=== PATIENT | female | born 1940 | race Caucasian/White ===

== ENCOUNTER 2016-12-03 09:30 | Outpatient (RCR) | payer MEDICARE, OTHER ==
[~2016-12-03 09:30] MED LIST: ALLOPURINOL300 MG PO; BISOPROLOL FUMA10 MG PO; CALCIUM CITRATE1 TA6 PO; HAWTHORN BERRIE1 CAP PO; HYZAAR 25 MG-101 TAB PO; OMEGA-31000 MG PO; POTASSIUM20 MEQ PO; TEKTURNA150 MG PO; VITAMIN D1000 IU PO; ZINC50 M1 PO
== END 2016-12-06 08:47 | disposition still patient (30) ==
LOC: MKS.ESL.PT 09:30
DX: M46.87 Other specified inflammatory spondylopathies, lumbosacral region (principal); M54.5 Low back pain
CPT/HCPCS: G8978-GP; G8979-GP; G8980-GP

== ENCOUNTER → 2017-01-04 | Outpatient (CLI) | payer MEDICARE, OTHER | LOC: SUN.DIA 08:45 | DX: E11.9 Type 2 diabetes mellitus without complications (principal); E66.9 Obesity, unspecified; Z68.32 Body mass index [BMI] 32.0-32.9, adult; Z71.3 Dietary counseling and surveillance; I10 Essential (primary) hypertension ==

== ENCOUNTER → 2017-03-07 | Outpatient (CLI) | payer MEDICARE, OTHER | LOC: MC.RAD 07:00 | DX: Z12.31 Encounter for screening mammogram for malignant neoplasm of breast (principal); D24.2 Benign neoplasm of left breast; Z85.3 Personal history of malignant neoplasm of breast; Z80.3 Family history of malignant neoplasm of breast ==

== ENCOUNTER → 2017-07-19 | Outpatient (CLI) | payer MEDICARE, OTHER | LOC: SUN.DIA 07-05 09:51 | DX: E11.9 Type 2 diabetes mellitus without complications (principal); I10 Essential (primary) hypertension; E66.9 Obesity, unspecified; Z68.35 Body mass index [BMI] 35.0-35.9, adult; Z71.3 Dietary counseling and surveillance | CPT/HCPCS: G0108 ==

== ENCOUNTER → 2017-08-26 | Outpatient (CLI) | payer MEDICARE, OTHER | LOC: COL.RAD 10:58 | DX: M48.06 Spinal stenosis, lumbar region (principal); M51.36 Other intervertebral disc degeneration, lumbar region; M46.86 Other specified inflammatory spondylopathies, lumbar region ==

== ENCOUNTER 2018-01-06 13:15 | Outpatient (RCR) | payer MEDICARE, OTHER | END 2018-02-16 | disposition home or self-care (01) | LOC: MKS.ESL.PT | DX: M75.02 Adhesive capsulitis of left shoulder (principal) | CPT/HCPCS: G8984-GP; G8985-GP; G8986-GP ==

== ENCOUNTER → 2018-01-24 | Outpatient (CLI) | payer MEDICARE, OTHER | LOC: SUN.DIA 08:43 | DX: E11.9 Type 2 diabetes mellitus without complications (principal); I10 Essential (primary) hypertension; E66.9 Obesity, unspecified; Z68.34 Body mass index [BMI] 34.0-34.9, adult; Z71.3 Dietary counseling and surveillance | CPT/HCPCS: G0108 ==

== ENCOUNTER 2018-03-14 20:47 | Observation (INO) | payer MEDICARE, OTHER ==
[~2018-03-14] VITALS: Ht 165.1 cm; Wt 98.3 kg
[2018-03-14 21:08] LABS: BASO % 0.5 % (0.0-2.0); EOS # 0.2 (0.0-0.7); EOS % 1.8 % (0-4.0); GRAN # 3.9 (1.4-6.5); GRAN % 47.3 % (42.2-75.2); HEMOGLOBIN 13.8 g/dl (12.5-16.0); LYMPH # 3.2 (1.2-3.4); LYMPH % 38.4 % (20.0-51.0); MEAN CELL VOLUME 95 fl (80.0-100.0); MEAN CORPUSCULAR HEMOGLOBIN 34 pg (27.0-31.0); MEAN CORPUSCULAR HGB CONC 35 g/dl (33.0-37.0); MEAN PLATELET VOLUME 10.3 fl (7.4-10.4); MONO % 11.8 % (1.7-9.3); PLATELET COUNT 170 K/mm3 (130-400); RED BLOOD COUNT 4.12 M/mm3 (4.10-5.30); REDCELL DISTRIBUTION WIDTH-CV 11.7 % (11.5-14.5)
[2018-03-14 21:12] LABS: PROTHROMBIN TIME 11.6 SECONDS (9.7-12.8)
[2018-03-14 21:44] LABS: ALANINE AMINOTRANSFERASE 35 U/L (9-52); ALBUMIN 4.3 gm/dL (3.5-5.0); ALKALINE PHOSPHATASE 77 U/L (50-136); ANION GAP 14 mmol/L (7-16); AST,SGOT 32 U/L (15-37); BILIRUBIN,TOTAL 0.7 mg/dL (0.0-1.0); BLOOD UREA NITROGEN 14 mg/dL (7-17); C-REACTIVE PROTEIN < 0.5 mg/dL (0.0-0.9); CALCIUM 9.9 mg/dL (8.4-10.2); CARBON DIOXIDE 27 mmol/L (22-30); CHLORIDE 98 mmol/L (98-107); CREATININE, serum 0.73 mg/dL (0.52-1.25); GLUCOSE 123 mg/dL (74-106); POTASSIUM 4.3 mmol/L (3.4-5.0); SODIUM 139 mmol/L (137-145); TOTAL PROTEIN 7.7 gm/dL (6.4-8.2)
[2018-03-14] MEDS ORDERED: ZYLOPRIM 100MG100 MG PO (21:46)
[2018-03-14] MEDS ORDERED: ARIMIDEX1 MG PO (21:47)
[2018-03-14] MEDS ORDERED: DIGESTIVE PROB1 EACH PO (21:50)
[2018-03-14] MEDS ORDERED: ZEBETA 5MG5 MG PO (21:50)
[2018-03-14] MEDS ORDERED: SUPER CALCIUM W1 TA2 PO (21:55)
[2018-03-14] MEDS ORDERED: COZAAR100 MG PO (21:56)
[2018-03-14] MEDS ORDERED: CALCIUM CITRAT200 M2 (21:56)
[2018-03-14] MEDS ORDERED: ALDACTONE 25MG25 M1 PO (21:58)
[2018-03-14] MEDS ORDERED: TYLENOL 8 HR PO (22:39)
[2018-03-14 23:33] VITALS: BP 233/66; PULSE 58; TEMP 98.4
[2018-03-15 00:41] VITALS: BP 168/42
[2018-03-15 04:02] VITALS: BP 148/59; PULSE 58; TEMP 97.5
[2018-03-15 07:22] LABS: BASO % 0.5 % (0.0-2.0); EOS # 0.1 (0.0-0.7); EOS % 1.9 % (0-4.0); GRAN # 3.5 (1.4-6.5); GRAN % 55.8 % (42.2-75.2); HEMATOCRIT 37.4 % (37.0-47.0); HEMOGLOBIN 13.1 g/dl (12.5-16.0); LYMPH % 32.1 % (20.0-51.0); MEAN CELL VOLUME 96 fl (80.0-100.0); MEAN CORPUSCULAR HEMOGLOBIN 34 pg (27.0-31.0); MEAN CORPUSCULAR HGB CONC 35 g/dl (33.0-37.0); MEAN PLATELET VOLUME 10.4 fl (7.4-10.4); MONO # 0.6 (0.1-0.6); MONO % 9.4 % (1.7-9.3); PLATELET COUNT 162 K/mm3 (130-400); RED BLOOD COUNT 3.89 M/mm3 (4.10-5.30); REDCELL DISTRIBUTION WIDTH-CV 11.8 % (11.5-14.5)
[2018-03-15 07:29] LABS: CALCIUM 9.4 mg/dL (8.4-10.2); CHOLESTEROL RISK RATIO 3.5; CREATININE, serum 0.66 mg/dL (0.52-1.25); POTASSIUM 3.8 mmol/L (3.4-5.0)
[2018-03-15 09:00] VITALS: BP 148/80
[2018-03-15 09:31] VITALS: PULSE 49; TEMP 98.2
[2018-03-15 13:00] VITALS: BP 150/62; BP 151/62; PULSE 60; TEMP 98
[2018-03-15 16:15] VITALS: BP 145/60; PULSE 47; TEMP 98.3
[2018-03-15] MEDS ORDERED: PLAVIX 75MG TAB75 MG PO (16:55)
== END 2018-03-15 17:41 | disposition home or self-care (01) ==
LOC: COL.ER 20:47 → MEDICAL 21:52
PROVIDERS: Family Medicine; Nurse Practitioner
DX: G45.9 Transient cerebral ischemic attack, unspecified (principal); I10 Essential (primary) hypertension; I08.1 Rheumatic disorders of both mitral and tricuspid valves; Z90.710 Acquired absence of both cervix and uterus; Z88.2 Allergy status to sulfonamides; Z88.8 Allergy status to other drugs, medicaments and biological substances; Z88.1 Allergy status to other antibiotic agents; Z85.3 Personal history of malignant neoplasm of breast; Z85.828 Personal history of other malignant neoplasm of skin; Z83.3 Family history of diabetes mellitus; Z80.3 Family history of malignant neoplasm of breast; Z82.49 Family history of ischemic heart disease and other diseases of the circulatory system
CPT/HCPCS: A9585; G0378; G8978-GP; G8979-GP; G9168-GN; G9169-GN; G9170-GN; J1650

== ENCOUNTER → 2018-03-22 | Outpatient (CLI) | payer MEDICARE, OTHER ==
[~2018-03-22] MED LIST changes: +ALDACTONE 25MG25 M1 PO; +ARIMIDEX1 MG PO; +CALCIUM CITRAT200 M2; +COZAAR100 MG PO; +DIGESTIVE PROB1 EACH PO; +PLAVIX 75MG TAB75 MG PO; +SUPER CALCIUM W1 TA2 PO; +TYLENOL 8 HR PO; +ZEBETA 5MG5 MG PO; +ZYLOPRIM 100MG100 MG PO
== END ==
LOC: MC.RAD 13:53
DX: Z12.31 Encounter for screening mammogram for malignant neoplasm of breast (principal); Z98.890 Other specified postprocedural states

== ENCOUNTER → 2018-04-07 | Outpatient (CLI) | payer MEDICARE, OTHER | LOC: MHCPAIN 08:17 | DX: G89.29 Other chronic pain (principal); M47.817 Spondylosis without myelopathy or radiculopathy, lumbosacral region; M53.3 Sacrococcygeal disorders, not elsewhere classified | CPT/HCPCS: G0463 ==

== ENCOUNTER → 2018-04-10 | Outpatient (CLI) | payer MEDICARE, OTHER | LOC: SUN.DIA 11:19 | DX: E11.9 Type 2 diabetes mellitus without complications (principal); I10 Essential (primary) hypertension; E66.9 Obesity, unspecified; Z68.35 Body mass index [BMI] 35.0-35.9, adult; Z71.3 Dietary counseling and surveillance | CPT/HCPCS: G0108 ==

== ENCOUNTER 2018-04-29 18:59 | Emergency (ER) | payer MEDICARE, OTHER ==
[2008-06-05 06:17] VITALS: BP 173/71
[2018-04-29 19:01] VITALS: TEMP 98
[2018-04-29 20:07] LABS: BASO % 0.3 % (0.0-2.0); EOS # 0.1 (0.0-0.7); EOS % 1.3 % (0-4.0); GRAN # 4.3 (1.4-6.5); GRAN % 57.2 % (42.2-75.2); HEMATOCRIT 40.5 % (37.0-47.0); HEMOGLOBIN 14.3 g/dl (12.5-16.0); LYMPH # 2.3 (1.2-3.4); LYMPH % 30.6 % (20.0-51.0); MEAN CELL VOLUME 97 fl (80.0-100.0); MEAN CORPUSCULAR HEMOGLOBIN 34 pg (27.0-31.0); MEAN CORPUSCULAR HGB CONC 35 g/dl (33.0-37.0); MEAN PLATELET VOLUME 10.1 fl (7.4-10.4); MONO # 0.8 (0.1-0.6); MONO % 10.5 % (1.7-9.3); PLATELET COUNT 183 K/mm3 (130-400); RED BLOOD COUNT 4.17 M/mm3 (4.10-5.30); REDCELL DISTRIBUTION WIDTH-CV 12.4 % (11.5-14.5)
[2018-04-29 20:13] LABS: INR 1.1 (0.8-3.0); PROTHROMBIN TIME 12.3 SECONDS (9.7-12.8)
[2018-04-29 20:16] LABS: ALANINE AMINOTRANSFERASE 32 U/L (9-52); ALBUMIN 4.1 gm/dL (3.5-5.0); ALKALINE PHOSPHATASE 65 U/L (50-136); ANION GAP 13 mmol/L (7-16); AST,SGOT 32 U/L (15-37); BILIRUBIN,TOTAL 1.1 mg/dL (0.0-1.0); BLOOD UREA NITROGEN 13 mg/dL (7-17); CARBON DIOXIDE 28 mmol/L (22-30); CHLORIDE 98 mmol/L (98-107); CREATININE, serum 0.67 mg/dL (0.52-1.25); GLUCOSE 149 mg/dL (74-106); POTASSIUM 3.7 mmol/L (3.4-5.0); SODIUM 139 mmol/L (137-145); TOTAL PROTEIN 7.4 gm/dL (6.4-8.2)
[2018-04-29] MEDS ORDERED: EPA FISH OIL1 SGL PO (20:22)
[2018-04-29] MEDS ORDERED: TUMERIC PO (20:23)
[2018-04-29] MEDS ORDERED: NATURAL ODORLE400 MG PO (20:24)
[2018-04-29] MEDS ORDERED: ASPIRIN 81M81 MG/TA2 PO (20:25)
[2018-04-29] MEDS ORDERED: ARIMIDEX1 MG PO (20:26)
[2018-04-29] MEDS ORDERED: CITRACAL + D CA1 TAB (20:26)
[2018-04-29] MEDS ORDERED: VITAMIN D 1001000 IU (20:27)
[2018-04-29 20:28] LABS: TROPONIN-I < 0.012 ng/mL (0.000-0.034)
[2018-04-29] MEDS ORDERED: CHLOROPHYLL 3 M1 TAB PO (20:28)
[2018-04-29] MEDS ORDERED: MACROBID 1100 MG/CAP PO (20:33)
[2018-04-29 21:34] VITALS: BP 160/62; PULSE 56
== END 2018-04-29 21:35 | disposition home or self-care (01) ==
LOC: COL.ER 18:59
PROVIDERS: Emergency Medicine
DX: I10 Essential (primary) hypertension (principal); Z79.82 Long term (current) use of aspirin

== ENCOUNTER 2018-05-01 07:20 | Emergency (ER) | payer MEDICARE, OTHER ==
[2008-06-05 06:17] VITALS: BP 173/71
[~2018-05-01] VITALS: Ht 165.1 cm; Wt 95.5 kg
[~2018-05-01 07:20] MED LIST changes: +ASPIRIN 81M81 MG/TA2 PO; +CHLOROPHYLL 3 M1 TAB PO; +CITRACAL + D CA1 TAB; +EPA FISH OIL1 SGL PO; +MACROBID 1100 MG/CAP PO; +NATURAL ODORLE400 MG PO; +TURMERIC500 MG; +VITAMIN D 1001000 IU
[2018-05-01 07:25] VITALS: TEMP 98.4
[2018-05-01 08:35] VITALS: BP 177/69; PULSE 53
== END 2018-05-01 08:35 | disposition home or self-care (01) ==
LOC: COL.ER 07:20
DX: I10 Essential (primary) hypertension (principal); M19.90 Unspecified osteoarthritis, unspecified site; Z90.710 Acquired absence of both cervix and uterus; Z98.890 Other specified postprocedural states; Z86.73 Personal history of transient ischemic attack (TIA), and cerebral infarction without residual deficits

== ENCOUNTER 2018-05-03 18:00 | Inpatient (IN) | payer MEDICARE ==
[2018-05-03] VITALS (68 sets, daily range): BP systolic 185; BP diastolic 82; PULSE 57–59; TEMP 97; O2SAT 95–100
[~2018-05-03] VITALS: Ht 165.1 cm; Wt 94.9 kg
[2018-05-03] MEDS ORDERED: NORVASC2.5 MG PO (18:41)
[2018-05-03 18:55] LABS: BASO % 0.6 % (0.0-2.0); EOS # 0.2 (0.0-0.7); EOS % 2.4 % (0-4.0); GRAN # 4.6 (1.4-6.5); GRAN % 64.2 % (42.2-75.2); HEMOGLOBIN 13.8 g/dl (12.5-16.0); LYMPH # 1.5 (1.2-3.4); LYMPH % 20.9 % (20.0-51.0); MEAN CELL VOLUME 96 fl (80.0-100.0); MEAN CORPUSCULAR HEMOGLOBIN 34 pg (27.0-31.0); MEAN CORPUSCULAR HGB CONC 35 g/dl (33.0-37.0); MEAN PLATELET VOLUME 10.1 fl (7.4-10.4); MONO # 0.8 (0.1-0.6); MONO % 11.6 % (1.7-9.3); PLATELET COUNT 176 K/mm3 (130-400); RED BLOOD COUNT 4.05 M/mm3 (4.10-5.30); REDCELL DISTRIBUTION WIDTH-CV 12.3 % (11.5-14.5)
[2018-05-03 19:06] LABS: CALCIUM 9.8 mg/dL (8.4-10.2); CREATININE, serum 0.81 mg/dL (0.52-1.25)
[2018-05-03 19:40] LABS: COLLECTION METHOD CLEAN CATCH
[2018-05-03 19:47] LABS: PH 7 (5-8); SQUAMOUS EPITHELIAL 0-2 /hpf; URINE APPEARANCE Clear; URINE BACTERIA None Seen /hpf; URINE BILIRUBIN Negative (NEGATIVE); URINE BLOOD Negative (NEGATIVE); URINE COLOR Straw; URINE GLUCOSE Negative (NEGATIVE); URINE KETONE Negative (NEGATIVE); URINE LEUKOCYTE ESTERASE Trace (NEGATIVE); URINE NITRATE Negative (NEGATIVE); URINE PROTEIN(semi-quant) Negative (NEGATIVE); URINE RBC 0-2 /hpf; URINE UROBILINOGEN Negative (NEGATIVE)
[2018-05-04] VITALS (827 sets, daily range): BP systolic 105–185; BP diastolic 54–84; PULSE 52–91; TEMP 97–98.7; O2SAT 70–100
[2018-05-04 01:49] LABS: MAGNESIUM 1.7 mg/dL (1.6-2.3); PHOSPHOROUS 3.1 mg/dL (2.5-4.5); URIC ACID 2.5 mg/dL (2.5-6.2)
[2018-05-04 02:19] LABS: THYROID STIMULATING HORMONE 1.25 uIU/mL (0.465-4.680)
[2018-05-04] MEDS ORDERED: ALDACTONE 25MG25 M1 PO (02:28)
[2018-05-04] MEDS ORDERED: MACROBID 1100 MG/CAP PO (02:32)
[2018-05-04 06:08] LABS: BASO # 0.1 (0.0-0.2); BASO % 0.7 % (0.0-2.0); EOS # 0.2 (0.0-0.7); EOS % 3.1 % (0-4.0); GRAN # 3.8 (1.4-6.5); GRAN % 53.5 % (42.2-75.2); HEMATOCRIT 40.5 % (37.0-47.0); HEMOGLOBIN 14.3 g/dl (12.5-16.0); LYMPH # 2.1 (1.2-3.4); LYMPH % 29.9 % (20.0-51.0); MEAN CELL VOLUME 96 fl (80.0-100.0); MEAN CORPUSCULAR HEMOGLOBIN 34 pg (27.0-31.0); MEAN CORPUSCULAR HGB CONC 35 g/dl (33.0-37.0); MEAN PLATELET VOLUME 10.2 fl (7.4-10.4); MONO # 0.9 (0.1-0.6); MONO % 12.5 % (1.7-9.3); PLATELET COUNT 195 K/mm3 (130-400); RED BLOOD COUNT 4.23 M/mm3 (4.10-5.30); REDCELL DISTRIBUTION WIDTH-CV 12.4 % (11.5-14.5)
[2018-05-04 06:30] LABS: ALBUMIN 4.1 gm/dL (3.5-5.0); BILIRUBIN,TOTAL 1.1 mg/dL (0.0-1.0); CALCIUM 9.9 mg/dL (8.4-10.2); CREATININE, serum 0.58 mg/dL (0.52-1.25); TOTAL PROTEIN 7.2 gm/dL (6.4-8.2)
[2018-05-05 00:46] VITALS: BP 148/46; PULSE 52; TEMP 97.6
[2018-05-05 03:32] VITALS: BP 153/43; PULSE 50; TEMP 98.7
[2018-05-05 07:40] VITALS: BP 147/54; PULSE 59; TEMP 98.2
[2018-05-05 08:10] LABS: CALCIUM 9.7 mg/dL (8.4-10.2); CREATININE, serum 0.65 mg/dL (0.52-1.25); POTASSIUM 3.5 mmol/L (3.4-5.0)
[2018-05-05 12:57] VITALS: BP 154/53; PULSE 62; TEMP 98.5
[2018-05-05 16:06] VITALS: BP 130/47; PULSE 56; TEMP 98.4
[2018-05-05 19:36] VITALS: BP 138/47; PULSE 62; TEMP 98.6
[2018-05-06 00:43] VITALS: BP 127/40; PULSE 54; TEMP 97.5
[2018-05-06 03:56] VITALS: BP 155/55; PULSE 55; TEMP 98.4
[2018-05-06 07:50] VITALS: BP 144/46; PULSE 55; TEMP 97.5
[2018-05-06 08:24] LABS: CALCIUM 9.8 mg/dL (8.4-10.2); CREATININE, serum 0.73 mg/dL (0.52-1.25); MAGNESIUM 1.6 mg/dL (1.6-2.3); POTASSIUM 4.1 mmol/L (3.4-5.0)
[2018-05-06] MEDS ORDERED: NORVASC 5MG5 MG/TAB PO (10:27)
[2018-05-06] MEDS ORDERED: HCTZ 25MG TAB25 MG PO (10:28)
[2018-05-06] MEDS ORDERED: APRESOLINE 10MG10 MG PO (10:29)
[2018-05-06 11:43] VITALS: BP 127/67; PULSE 61; TEMP 97.6
== END 2018-05-06 12:45 | disposition home or self-care (01) | DRG 78 ==
LOC: COL.ER 18:00 → ICU 22:12 → MEDICAL 05-04 17:27 → ICU 05-04 17:28 → MEDICAL 05-04 18:45
PROVIDERS: Emergency Medicine; Family Medicine; Nurse Practitioner Family
DX: I67.4 Hypertensive encephalopathy (principal); I16.1 Hypertensive emergency; E87.1 Hypo-osmolality and hyponatremia; H53.8 Other visual disturbances; R47.89 Other speech disturbances; Z85.3 Personal history of malignant neoplasm of breast; R13.10 Dysphagia, unspecified; I10 Essential (primary) hypertension
CPT/HCPCS: 99223-AI; 99232-AI; 99239; A9585; G0378; J1650; J2060; J7050

== ENCOUNTER → 2018-05-17 | Outpatient (CLI) | payer MEDICARE ==
[~2018-05-17] MED LIST changes: +APRESOLINE 10MG10 MG PO; +HCTZ 25MG TAB25 MG PO; +NORVASC 5MG5 MG/TAB PO; +NORVASC2.5 MG PO
== END ==
LOC: COL.RAD 10:42
DX: I70.1 Atherosclerosis of renal artery (principal); E27.9 Disorder of adrenal gland, unspecified
CPT/HCPCS: Q9967

== ENCOUNTER → 2018-05-22 | Outpatient (CLI) | payer MEDICARE | LOC: COL.RAD 05-19 13:30 | DX: I70.1 Atherosclerosis of renal artery (principal); E27.8 Other specified disorders of adrenal gland | CPT/HCPCS: Q9967 ==

== ENCOUNTER → 2018-06-06 | Outpatient (CLI) | payer MEDICARE, OTHER | LOC: MC.RAD 10:04 | DX: N63.22 Unspecified lump in the left breast, upper inner quadrant (principal); N64.59 Other signs and symptoms in breast; Z98.890 Other specified postprocedural states ==

== ENCOUNTER 2018-06-29 11:30 | Outpatient (RCR) | payer MEDICARE, OTHER | END 2018-07-04 | disposition home or self-care (01) | LOC: WSPT | DX: M25.561 Pain in right knee (principal) | CPT/HCPCS: G8978-GP; G8979-GP ==

== ENCOUNTER → 2018-07-04 | Outpatient (CLI) | payer MEDICARE, OTHER | LOC: MHCPAIN 09:05 | DX: G89.29 Other chronic pain (principal); M47.817 Spondylosis without myelopathy or radiculopathy, lumbosacral region; M53.3 Sacrococcygeal disorders, not elsewhere classified | CPT/HCPCS: G0463 ==

== ENCOUNTER → 2018-07-10 | Outpatient (CLI) | payer MEDICARE, OTHER | LOC: MHCPAIN 12:32 | DX: M47.817 Spondylosis without myelopathy or radiculopathy, lumbosacral region (principal); M54.5 Low back pain | CPT/HCPCS: J1040; Q9967 ==

== ENCOUNTER → 2018-07-11 | Outpatient (CLI) | payer MEDICARE, OTHER | LOC: SUN.DIA 09:16 | DX: E11.9 Type 2 diabetes mellitus without complications (principal); I10 Essential (primary) hypertension; E66.9 Obesity, unspecified | CPT/HCPCS: G0108 ==

== ENCOUNTER 2018-08-01 12:00 | Outpatient (RCR) | payer MEDICARE, OTHER | END 2018-10-04 | disposition home or self-care (01) | LOC: WSPT | DX: M25.561 Pain in right knee (principal) | CPT/HCPCS: G8978-GP; G8979-GP ==

== ENCOUNTER → 2018-08-02 | Outpatient (CLI) | payer MEDICARE, OTHER | LOC: MHCPAIN 09:47 | DX: G89.29 Other chronic pain (principal); M47.817 Spondylosis without myelopathy or radiculopathy, lumbosacral region; M53.3 Sacrococcygeal disorders, not elsewhere classified | CPT/HCPCS: G0463 ==

== ENCOUNTER → 2018-09-12 | Outpatient (CLI) | payer MEDICARE, OTHER | LOC: SUN.DIA 10:05 | DX: E11.9 Type 2 diabetes mellitus without complications (principal); I10 Essential (primary) hypertension; E66.9 Obesity, unspecified | CPT/HCPCS: G0108 ==

== ENCOUNTER → 2018-10-31 | Outpatient (CLI) | payer MEDICARE, OTHER | LOC: MHCPAIN 09:21 | DX: G89.29 Other chronic pain (principal); M47.817 Spondylosis without myelopathy or radiculopathy, lumbosacral region; M53.3 Sacrococcygeal disorders, not elsewhere classified | CPT/HCPCS: G0463 ==

== ENCOUNTER → 2018-11-09 | Outpatient (CLI) | payer MEDICARE, OTHER | LOC: MHCPAIN 09:27 | DX: M47.817 Spondylosis without myelopathy or radiculopathy, lumbosacral region (principal); M54.16 Radiculopathy, lumbar region ==

== ENCOUNTER → 2018-11-14 | Outpatient (CLI) | payer MEDICARE, OTHER | LOC: MHCPAIN 12:35 | DX: G89.29 Other chronic pain (principal); M47.817 Spondylosis without myelopathy or radiculopathy, lumbosacral region; M53.3 Sacrococcygeal disorders, not elsewhere classified | CPT/HCPCS: G0463 ==

== ENCOUNTER → 2018-11-30 | Outpatient (CLI) | payer MEDICARE, OTHER | LOC: MHCPAIN 08:28 | DX: M47.817 Spondylosis without myelopathy or radiculopathy, lumbosacral region (principal); M54.16 Radiculopathy, lumbar region | CPT/HCPCS: J1100; Q9967 ==

== ENCOUNTER → 2019-02-27 | Outpatient (CLI) | payer MEDICARE, OTHER | LOC: MHCPAIN 11:12 | DX: G89.29 Other chronic pain (principal); M47.817 Spondylosis without myelopathy or radiculopathy, lumbosacral region; M54.16 Radiculopathy, lumbar region; M53.3 Sacrococcygeal disorders, not elsewhere classified | CPT/HCPCS: G0463 ==

== ENCOUNTER → 2019-03-13 | Outpatient (CLI) | payer MEDICARE, OTHER | LOC: SUN.DIA 10:31 | DX: E11.9 Type 2 diabetes mellitus without complications (principal); I10 Essential (primary) hypertension; E66.9 Obesity, unspecified | CPT/HCPCS: G0108 ==

== ENCOUNTER → 2019-04-03 | Outpatient (CLI) | payer MEDICARE, OTHER | LOC: MC.RAD 10:58 | DX: Z12.31 Encounter for screening mammogram for malignant neoplasm of breast (principal); Z98.890 Other specified postprocedural states ==

== ENCOUNTER 2019-08-15 10:15 | Outpatient (RCR) | payer MEDICARE, OTHER | END 2019-10-04 | disposition home or self-care (01) | LOC: MKS.ESL.PT | DX: M25.511 Pain in right shoulder (principal) ==

== ENCOUNTER → 2019-09-18 | Outpatient (CLI) | payer MEDICARE | LOC: DIA.ED 09-13 14:54 | DX: E11.9 Type 2 diabetes mellitus without complications (principal); I10 Essential (primary) hypertension; E66.9 Obesity, unspecified | CPT/HCPCS: G0270 ==

== ENCOUNTER → 2020-04-17 | Outpatient (CLI) | payer MEDICARE | LOC: MC.RAD 04-04 08:30 | DX: Z12.31 Encounter for screening mammogram for malignant neoplasm of breast (principal); Z98.890 Other specified postprocedural states; Z85.3 Personal history of malignant neoplasm of breast ==

== ENCOUNTER 2020-05-19 09:00 | Outpatient (RCR) | payer MEDICARE | END 2020-05-19 11:31 | disposition home or self-care (01) | LOC: MKS.ESL.PT 09:00 | DX: R51 Headache (principal) ==

== ENCOUNTER → 2020-07-14 | Outpatient (CLI) | payer MEDICARE | LOC: MC.RAD 07-10 13:30 | DX: N63.0 Unspecified lump in unspecified breast (principal); Z92.3 Personal history of irradiation; Z85.3 Personal history of malignant neoplasm of breast; Z98.890 Other specified postprocedural states ==

== ENCOUNTER → 2020-10-29 | Outpatient (CLI) | payer MEDICARE | LOC: DIA.ED 08:27 | DX: E11.9 Type 2 diabetes mellitus without complications (principal); I10 Essential (primary) hypertension; E66.8 Other obesity | CPT/HCPCS: G0270 ==

== ENCOUNTER 2020-11-24 14:00 | Outpatient (RCR) | payer MEDICARE | END 2020-12-01 | disposition home or self-care (01) | LOC: MKS.ESL.OT | DX: G56.03 Carpal tunnel syndrome, bilateral upper limbs (principal) ==

== ENCOUNTER → 2021-04-23 | Outpatient (CLI) | payer MEDICARE ==
[~2021-04-23] MED LIST changes: +ELIQUIS 5MG PO
== END ==
LOC: MC.RAD 08:15
DX: Z12.31 Encounter for screening mammogram for malignant neoplasm of breast (principal); Z90.12 Acquired absence of left breast and nipple; Z98.890 Other specified postprocedural states

== ENCOUNTER 2021-09-11 09:26 | Emergency (ER) | payer MEDICARE ==
[~2021-09-11] VITALS: Ht 165.1 cm; Wt 80.5 kg
[~2021-09-11 09:26] MED LIST changes: -ELIQUIS 5MG PO
[2021-09-11 09:31] VITALS: TEMP 98.1
[2021-09-11 09:53] LABS: BASO % 0.6 % (0.0-2.0); EOS # 0.1 K/mm3 (0.0-0.7); EOS % 1.4 % (0-4.0); GRAN # 2.7 K/mm3 (1.4-6.5); GRAN % 54.4 % (42.2-75.2); HEMATOCRIT 41.9 % (37.0-47.0); HEMOGLOBIN 14.4 g/dl (12.5-16.0); LYMPH # 1.7 K/mm3 (1.2-3.4); LYMPH % 33.6 % (20.0-51.0); MEAN CELL VOLUME 99 fl (80.0-100.0); MEAN CORPUSCULAR HEMOGLOBIN 34 pg (27.0-31.0); MEAN CORPUSCULAR HGB CONC 34 g/dl (33.0-37.0); MEAN PLATELET VOLUME 10.1 fl (7.4-10.4); MONO # 0.5 K/mm3 (0.1-0.6); MONO % 9.8 % (1.7-9.3); PLATELET COUNT 155 K/mm3 (130-400); RED BLOOD COUNT 4.22 M/mm3 (4.10-5.30); REDCELL DISTRIBUTION WIDTH-CV 12.1 % (11.5-14.5)
[2021-09-11 10:03] LABS: INR 1.2 (0.8-3.0); PROTHROMBIN TIME 12.9 SECONDS (9.7-12.8)
[2021-09-11 10:11] LABS: ALBUMIN 4.3 gm/dL (3.4-4.8); BILIRUBIN,TOTAL 1.1 mg/dL (0.2-1.2); CALCIUM 10.3 mg/dL (8.4-10.2); CREATININE, serum 0.75 mg/dL (0.57-1.11); POTASSIUM 3.9 mmol/L (3.5-4.5); TOTAL PROTEIN 7.2 gm/dL (6.2-8.1)
[2021-09-11 10:16] LABS: TROPONIN-I 0.011 ng/mL (0.00-0.033)
[2021-09-11] MEDS ORDERED: ELIQUIS 5MG PO (10:57)
[2021-09-11 11:05] VITALS: BP 160/85; PULSE 64
== END 2021-09-11 11:09 | disposition home or self-care (01) ==
LOC: COL.ER 09:26
PROVIDERS: Personal Emergency Response Attendant
DX: I48.91 Unspecified atrial fibrillation (principal); I10 Essential (primary) hypertension; E11.9 Type 2 diabetes mellitus without complications; M19.91 Primary osteoarthritis, unspecified site; Z86.73 Personal history of transient ischemic attack (TIA), and cerebral infarction without residual deficits; Z79.82 Long term (current) use of aspirin; Z79.899 Other long term (current) drug therapy

== ENCOUNTER → 2021-10-08 | Outpatient (CLI) | payer MEDICARE ==
[~2021-10-08] MED LIST changes: +ELIQUIS 5MG PO
== END ==
LOC: DIA.ED 08:48
DX: E11.9 Type 2 diabetes mellitus without complications (principal); I10 Essential (primary) hypertension
CPT/HCPCS: G0270

== ENCOUNTER → 2021-11-10 | Outpatient (CLI) | payer MEDICARE | LOC: COL.VAS 11:53 | DX: I48.19 Other persistent atrial fibrillation (principal) ==

== ENCOUNTER 2022-04-20 14:15 | Outpatient (RCR) | payer MEDICARE | END 2022-04-27 | disposition home or self-care (01) | LOC: MKS.ESL.OT | DX: M65.4 Radial styloid tenosynovitis [de Quervain] (principal); M79.645 Pain in left finger(s) ==

== ENCOUNTER → 2022-04-29 | Outpatient (CLI) | payer MEDICARE | LOC: MC.RAD 13:30 | DX: Z12.31 Encounter for screening mammogram for malignant neoplasm of breast (principal); Z85.3 Personal history of malignant neoplasm of breast; Z92.3 Personal history of irradiation; Z98.890 Other specified postprocedural states ==

== ENCOUNTER 2022-05-13 13:45 | Outpatient (RCR) | payer MEDICARE | END 2022-05-27 | disposition home or self-care (01) | LOC: MKS.ESL.OT | DX: M65.4 Radial styloid tenosynovitis [de Quervain] (principal); M79.645 Pain in left finger(s) ==

== ENCOUNTER 2022-10-06 08:11 | Day surgery (SDC) | payer MEDICARE ==
[2008-06-05 06:17] VITALS: BP 173/71
[2022-10-06] VITALS (7 sets, daily range): BP systolic 116–164; BP diastolic 56–100; PULSE 43–68; TEMP 97.9
[~2022-10-06 08:11] MED LIST changes: +COZAAR 25MG25 MG/TAB PO; -COZAAR100 MG PO; -TURMERIC500 MG; +TURMERIC500 MG PO; -VITAMIN D 1001000 IU; +VITAMIND3 5000 PO
[2022-10-06] MEDS ORDERED: PRESERVISION1 SGL PO (08:47)
[2022-10-06] MEDS ORDERED: MAGNESIUM500 MG PO (08:47)
[2022-10-06] MEDS ORDERED: TYLENOL 8 HR PO (08:49)
[2022-10-06] MEDS ORDERED: EXELON3 MG PO (08:49)
[2022-10-06] MEDS ORDERED: XARELTO20 MG PO (08:51)
[2022-10-06 09:12] LABS: HEMATOCRIT 40.7 % (37.0-47.0); MEAN CELL VOLUME 100 fl (80.0-100.0); MEAN CORPUSCULAR HEMOGLOBIN 34 pg (27-31); MEAN CORPUSCULAR HGB CONC 34 g/dl (33.0-37.0); MEAN PLATELET VOLUME 10.1 fl (7.4-10.4); PLATELET COUNT 170 K/mm3 (130-400); RED BLOOD COUNT 4.07 M/mm3 (4.10-5.30); REDCELL DISTRIBUTION WIDTH-CV 12.6 % (11.5-14.5)
[2022-10-06 09:22] LABS: CALCIUM 10.1 mg/dL (8.4-10.2); CREATININE, serum 0.8 mg/dL (0.57-1.11); POTASSIUM 3.8 mmol/L (3.5-4.5)
[2022-10-06 09:23] LABS: INR 2.6 (0.8-3.0); PROTHROMBIN TIME 30.6 SECONDS (9.7-12.8)
[2022-10-06 09:26] LABS: PARTIAL THROMBOPLASTIN TIME 48.1 SECONDS (26.0-37.0)
[2022-10-06 09:42] LABS: THYROID STIMULATING HORMONE 0.805 uIU/mL (0.350-4.940)
[2022-10-06] MEDS ORDERED: COZAAR100 MG PO (11:41)
[2022-10-06] MEDS ORDERED: CORDARONE200 MG/TAB PO (11:42)
--- NOTE | 2022-10-06 12:00 | NUR ---
Pt care was assumed at 1000. Report from Bryan LUNA. Pt has remained awake and alert, in sinus kitty on monitor. Pt has been able to drink water and eat some jello with no problems swallowing, and no significant pain. I reviewed dc/rx and fu instructions with pt and . They both verbalized understanding. Dr. Dickey was in to bs to discuss poc with pt also. Pt is amb with steady gait in room with her cane. IV dc'd. Pt to exit via wheelchair.
== END 2022-10-06 12:45 | disposition home or self-care (01) ==
LOC: COL.CAR 08:11
PROVIDERS: Internal Medicine Adult Congenital Heart Disease
DX: I48.91 Unspecified atrial fibrillation (principal); Q21.12 Patent foramen ovale; I08.1 Rheumatic disorders of both mitral and tricuspid valves; I70.0 Atherosclerosis of aorta; E11.9 Type 2 diabetes mellitus without complications
CPT/HCPCS: J2704

== ENCOUNTER 2023-07-15 09:20 | Inpatient (IN) | payer MEDICARE ==
[~2023-07-15] VITALS: Ht 170.2 cm; Wt 82.0 kg
[~2023-07-15 09:20] MED LIST changes: +B COMPLEX #11 TA1 PO; +CORDARONE200 MG/TAB PO; +COZAAR100 MG PO; +EXELON3 MG PO; +MAGNESIUM200 MG PO; +MAGNESIUM500 MG PO; +PHARMASSURE ZIN50 MG PO; +PRESERVISION1 SGL PO; +XARELTO20 MG PO
[2023-07-26 15:25] VITALS: BP 173/56; PULSE 59; TEMP 98.3
[2023-07-26] MEDS ORDERED: NEURONTIN300 MG/CAP PO (15:27)
[2023-07-26] MEDS ORDERED: CATAPRES 0.1MG0.1 MG PO (15:27)
[2023-07-26] MEDS ORDERED: HYDRALAZINE HC100 MG PO (15:28)
[2023-07-26] MEDS ORDERED: LIDOCAINE PATCH 4% (15:30)
[2023-07-26] MEDS ORDERED: TYLENOL 8 HR PO (15:30)
[2023-07-26] MEDS ORDERED: MAGNESIUM500 MG PO (15:32)
[2023-07-26] MEDS ORDERED: PRESERVISION A1 EAC3 PO (15:33)
[2023-07-26] MEDS ORDERED: TURMERIC CURCUMIN (15:34)
[2023-07-26] MEDS ORDERED: EXELON3 MG PO (15:34)
[2023-07-26] MEDS ORDERED: VITAMIN A (15:35)
[2023-07-26] MEDS ORDERED: B-121000 MCG PO (15:38)
[2023-07-26] MEDS ORDERED: VITAMIN K PO (15:39)
--- NOTE | 2023-07-26 15:43 | NUR ---
New pt arrived from [facility] via gurney. Pt is a/o x 3. Has an expressive delay but answers questions appropriately. is at the bedside. Skin is intact. Scattered bruises noted to RUE, RLE, Rt. face, Rt side of neck from a fall at home prior to her hospital admission. RLE & RUE both flaccid. Womack catheter was placed at [facility] for urine retention. Womack is patent to drainage bag w/ clear & yellow urine noted. Valuable items denied. Pt denies pain/discomfort, chest pain, difficulty breathing, SHETH, nausea. Orientation provided to room/unit/visiting hours. Pt has her call light in reach. Bed alarm is on.
[2023-07-26 15:59] VITALS: BP 148/56
[2023-07-26 18:14] VITALS: BP 162/52; PULSE 56; TEMP 98.1
[2023-07-26 18:19] VITALS: BP_SYST 162
--- NOTE | 2023-07-26 18:20 | NUR ---
Daughter expressing concerns about possible depression r/t acuity of illness & hospitalization. Daughter requesting mental health services. Will discuss w/ Dr. Reid upon his arrival tomorrow morning.
--- NOTE | 2023-07-26 20:00 | NUR ---
FAMILY AT BEDSIDE. VERY SUPPORTIVE. GETTING READY TO LEAVE. PT A&O. PLEASANT ANS COOPERATIVE. HOB ELEVATED. SWALLOWING PRECAUTUIONS CONTINUE. TAKES MEDS CRUSHED IN PUDDING. NICO WELL. GAVE TYLENOL FOR GEN ACHES. PERICARE GIVEN. SEE PREVIOUS NOTES RE CALLING [facility] S[facility] HOSPITLIST. REPOSITIONED TO RT SIDE. CALL LIGHT IN REACH. BED ALARM SET.
[2023-07-26 21:00] VITALS: BP_SYST 162
--- NOTE | 2023-07-27 00:12 | NUR ---
PT TAKES MIDNIGHT MEDS CRUSHED WITH PUDDING. PT EXPERIENCING EXPRESSIVE APHASIA. GETS FRUSTRATED. REPOSITIONED TO BACK. RT ARM ELEVATED ON PILLOWS. RT ARM AND LEG EDEMATOUS. SCD'S ON BILAT. HEELS FLOATED.
[2023-07-27 05:32] VITALS: BP 152/62; PULSE 59; TEMP 98.4
[2023-07-27 07:00] VITALS: BP_SYST 152
--- NOTE | 2023-07-27 07:01 | NUR ---
Shift report received from assistant casino shift manager RN. No events reported overnight. Pt sleeping supine. HOB slightly elevated. Resps are even & unlabored. Call light in reach. Bed alarm on.
--- NOTE | 2023-07-27 09:32 | NUR ---
Initial visit; Patient and Henri thanked feather separator for looking in on Guadalupe and offering Morning Prayer and God's blessings. Guadalupe a very pleasant person who appears somewhat encouraged by prayer to get stronger and get well.
--- NOTE | 2023-07-27 12:36 | NUR ---
Pt sitting up in bed for lunch. is at the bedside to assist pt w/ eating. Pain/discomfort denied. Pt did bed exercises w/ PT this morning. She reports feeling tired. Other needs denied. Call light in reach. Bed alarm is on.
--- NOTE | 2023-07-27 13:54 | NUR ---
Pt up in wheelchair w/ PT & OT. Pt reporting pain on her right side. Lidocaine patch on back of right shoulder. Pt being repositioned back in bed by PT & OT.
--- NOTE | 2023-07-27 16:26 | NUR ---
Quality Improvement Specialist met with patient to welcome her to the rehab unit. Patient lives in [place] with her , Tim (ph#[phone]) and sees Dr. Torres for primary care. Patient obtains medications from [facility] and remarked she usually picks them up but can also have them delivered. Patient has both a cane and walker available to her at home. Patient stated she is normally independent with ADLS and "used to" drive. Patient lives on a one level home. Patient does not remember if she has DPOA-HC or not. Patient has four daughters and listed her daughter, Elaine as another point of contact. SW provided team conference notes to patient and advised she will be re-evaluated next week. Patient had therapy evals today.
[2023-07-27 17:01] VITALS: BP 144/50; PULSE 65; TEMP 97.5
[2023-07-27 19:08] VITALS: BP_SYST 144
--- NOTE | 2023-07-27 21:23 | NUR ---
FOUND RIVASTIGMINE PATCH TO RT CHEST. REMOVED. NOT ORDERED. HAS BRUISING TO RT JAW DOWN NECK. RT ANTERIOR CLAVICLE AREA/CHEST. RT ARM EDEMA PITTING +3 LEAKING FLUID. LUE UP ON 2 PILLOWS. RT GROIN THIGH EDEMATOUS +3. ELEVATED ON PILLOWS. SCD'S ON BILAT. TAKES MED CRUSHED IN PUDDING. LEFT HOB ELEVATED FOR AWHILE. HAS SOME EXPRESSIVE APHASIA. FAMILY HERE EARLIER. VERY SUPPORTIVE. MICONAZOLE POWDER TO SMILEY AREA FOR YEAST INFECTION. CALL LIGHT IN REACH. BED ALARM IN REACH. NO NEEDS AT THIS TIME.
[2023-07-28 05:25] VITALS: BP 134/60; PULSE 58; TEMP 97.7
[2023-07-28 06:10] LABS: BASO % 0.4 % (0.0-2.0); EOS # 0.1 K/mm3 (0.0-0.7); EOS % 2.7 % (0.0-4.0); GRAN # 3.1 K/mm3 (1.4-6.5); GRAN % 63.6 % (42.2-75.2); LYMPH # 0.9 K/mm3 (1.2-3.4); LYMPH % 19.1 % (20.0-51.0); MEAN CELL VOLUME 98 fl (80.0-100.0); MEAN CORPUSCULAR HGB CONC 34 g/dl (33.0-37.0); MEAN PLATELET VOLUME 9.8 fl (7.4-10.4); MONO # 0.7 K/mm3 (0.1-0.6); PLATELET COUNT 236 K/mm3 (130-400); RED BLOOD COUNT 2.91 M/mm3 (4.10-5.30); REDCELL DISTRIBUTION WIDTH-CV 13.2 % (11.5-14.5)
[2023-07-28 06:14] LABS: HEMATOCRIT 28.4 % (37.0-47.0); HEMOGLOBIN 9.7 g/dl (12.5-16.0); MEAN CORPUSCULAR HEMOGLOBIN 33 pg (27-31)
[2023-07-28 06:21] LABS: CALCIUM 8.7 mg/dL (8.4-10.2); CREATININE, serum 0.64 mg/dL (0.57-1.11); POTASSIUM 3.2 mmol/L (3.5-4.5)
[2023-07-28 07:13] VITALS: BP_SYST 134
--- NOTE | 2023-07-28 10:17 | NUR ---
PT SITTING UP IN BED, ALERT AND ORIENTEDX3. RATES PAIN IN THE BACK OF KNECK 03/07. ASSESSED AND GAVE MORNING MEDS. CALL LIGHT WITHIN REACH
[2023-07-28 16:55] VITALS: BP 130/58; PULSE 58; TEMP 97.2
[2023-07-28 18:30] VITALS: BP_SYST 130
--- NOTE | 2023-07-28 21:45 | NUR ---
PT SLEEPY TONIGHT. ORIENTED. MILD EXPRESSIVE APHASIA. RT SIDE FLACCID. RT ARM SEEPING FLUID FROM EDEMA. ELEVATED RT ARM ON PILLOW. DENIES PAIN. TAKES MEDS CRUSHED IN PUDDING. HOB ELEVATED. CALL LIGHT IN REACH. BED ALARM SET.
[2023-07-29 05:32] VITALS: BP 120/90; PULSE 58; TEMP 97.6
[2023-07-29 06:46] VITALS: BP_SYST 120
--- NOTE | 2023-07-29 08:44 | NUR ---
Has lack of transportation kept you from medical appts, meetings, work, or from getting things needed for daily living? NO How often do you feel lonely or isolated from those around you? NEVER Over the past 5 days, how much of the time has pain made it hard for you to sleep? RARELY/NOT AT ALL Over the past 5 days, how often have you limited your participation in therapy due to pain? RARELY/NOT AT ALL Over the past 5 days, how often have you limited your day-to-day activities because of pain? RARELY/NOT AT ALL Have you had 2 or more falls in the past year or any fall with an injury? NO Did you have major surgery during the 100 days prior to admission? NO
--- NOTE | 2023-07-29 10:28 | NUR ---
PT LAYING IN BED, EATING BREAKFAST, ALERT AND ORIENTEDX3. NO COMPLAINTS OF PAIN AT THIS TIME. RIGHT SIDE EXTREMETIES BOTH SWOLLEN. PT ABLE TO FEEL TOUCH TO THEM BUT UNABL TO MOVE THEM. RIGHT UPPER EXTREMEMITY IS LEAKING FLUID. GAVE PT MORNING MEDS. CALL LIGHT WITHIN REACH.
--- NOTE | 2023-07-29 12:45 | NUR ---
Admission QIM scores were reviewed by the team. Code of 88 chosen for oral hygiene was determined by team discussion to be the most usual performance before interventions for this patient during the assessment period. Code of 1 chosen for rolling left to right was determined by team discussion to be the most usual performance before interventions for this patient during the assessment period. Code of 1 chosen for sit to lying was determined by team discussion to be the most usual performance before interventions for this patient during the assessment period. Code of 1 chosen for lying to sitting side of bed was determined by team discussion to be the most usual performance before interventions for this patient during the assessment period. Code of 88 chosen for sit to stand was determined by team discussion to be the most usual performance for this patient during the discharge assessment period. Code of 88 chosen for chair/bed to chair transfer was determined by team discussion to be the most usual performance before interventions for this patient during the assessment period.--Jeane Dominguez, PD
--- NOTE | 2023-07-29 16:05 | NUR ---
Sports Information Director met with patient to check in. Patient expressed she wanted a blanket. Nurse provided an additional blanket. Patient did not have any additional concerns or needs at this time.
[2023-07-29 17:27] VITALS: BP 120/70; PULSE 67; TEMP 97.9
[2023-07-29 19:00] VITALS: BP_SYST 120
--- NOTE | 2023-07-29 19:00 | NUR ---
SHIFT ASSESSMENT COMPLETE. NIGHT MEDS GIVEN PER ORDER. PATIENT RESTING IN BED VISITING WITH FAMILY. FRIEDMAN CATHETER IN PLACE URINE CLEAR AND YELLOW. PATIENT REPOSITIONED IN BED. PATIENT HAS NO COMPLAINTS AT THIS TIME. BED AT LOWEST POSITION, BED ALARM ON, AND CALL LIGHT IN REACH.
[2023-07-30 05:13] VITALS: BP 135/70; PULSE 135; TEMP 97.7
[2023-07-30 06:21] VITALS: BP_SYST 135
--- NOTE | 2023-07-30 07:03 | NUR ---
Shift report received from scene shifter OIL HEATER INSTALLER. Pt sleeping supine in bed. HOB slightly elevated. Resps are even & unlabored. No events reported overnight. is at the bedside. Call light in reach. Bed alarm is on.
--- NOTE | 2023-07-30 08:28 | NUR ---
Pt resting supine in bed after eating 100% of her breakfast w/ assistance from her . PT & OT now at the bedside. Pt denies any needs. Call light in her reach. Bed alarm is on.
--- NOTE | 2023-07-30 08:39 | NUR ---
Pt transferred to a wheelchair using a sit/stand lift w/ PT & OT. Pt sitting at the sink to perform morning hygiene.
--- NOTE | 2023-07-30 09:06 | NUR ---
Pt is off the unit for PT/OT.
--- NOTE | 2023-07-30 10:33 | NUR ---
Pt back in bed after Group Therapy. Sit/stand lift used by RN & PT. Pt resting supine in bed. BUE elevated on pillows x 1. Womack cath remains patent to drainage w/ clear & yellow return. Pt denies pain/discomfort. Denies other needs. Call light in her reach. Bed alarm is on.
--- NOTE | 2023-07-30 11:57 | NUR ---
Pt ate approx 70% of her lunch independently. Pt tolerated her soft & bite sized lunch w/o coughing or choking. She denies pain/discomfort. Denies other needs. Call light is in her reach. Bed alarm is on.
--- NOTE | 2023-07-30 15:37 | NUR ---
Pt sleeping supine in bed. HOB slightly elevated. Resps are even & unlabored. Womack patent to drainage. Call light in reach. Bed alarm on.
[2023-07-30 16:34] VITALS: BP 124/72; PULSE 62; TEMP 98.7
[2023-07-30 18:30] VITALS: BP_SYST 124
--- NOTE | 2023-07-30 22:30 | NUR ---
SHIFT ASSESSMENT COMPLETE. A&O X4. VSS. ALL NIGHT MEDS GIVEN ORDERED. PATIENT IN BED PREPARING TO GO TO SLEEP FOR THE NIGHT. PATIENT HAS NO REQUEST OR COMPLAINTS AT THIS TIME. PATIENT REPOSITIONED Q2 ORDERED. BED AT LOWEST POSITION, BED ALARM ON, AND CALL LIGHT IN REACH.
[2023-07-31] VITALS (7 sets, daily range): BP systolic 114–142; BP diastolic 58–75; PULSE 58–73; TEMP 97.9–98.9
--- NOTE | 2023-07-31 06:45 | NUR ---
Shift report received from night VICE PRESIDENT OF SOFTWARE ENGINEERING. No events reported overnight. Pt sleeping supine in bed. Resps are even & unlabored. Call light in reach. Bed alarm on.
--- NOTE | 2023-07-31 08:07 | NUR ---
Pt sitting up in bed eating breakfast independently. Friends/family are at the bedside. Pt reports not sleeping well during the night & recalls getting a medication to help her sleep around midnight. Pt denies pain/discomfort. Denies other needs. Call light in her reach. Bed alarm is on.
--- NOTE | 2023-07-31 14:23 | NUR ---
Pt lying supine in bed, repositioned from left side to supine. Daughter & friends are at the bedside. Womack remains patent to drainage w/ clear, yellow urine. Pt denies pain/discomfort. Denies other needs. Call light in her reach. Bed alarm is on.
--- NOTE | 2023-07-31 15:51 | NUR ---
Pt sitting up in bed visiting w/ her daughter. She reports right shoulder pain. Warm blanket placed behind shoulders at her request. Scheduled gabapentin given. Pt denies other needs. Call light in her reach. Bed alarm is on.
--- NOTE | 2023-07-31 19:28 | NUR ---
RECEIVED CHANGE OF SHIFT REPORT FROM DAY SHIFT RN.
[2023-08-01 05:55] VITALS: BP 138/54; PULSE 58; TEMP 98.4
[2023-08-01 06:53] VITALS: BP_SYST 138
--- NOTE | 2023-08-01 06:54 | NUR ---
Shift report received from assembler 1st shift RN. No events reported overnight. Pt sleeping supine w/ even & unlabored resps. Call light in reach. Bed alarm is on.
--- NOTE | 2023-08-01 07:00 | NUR ---
CHANGE OF SHIFT REPORT GIVEN TO DAY SHIFT RNFRANCISCO.
--- NOTE | 2023-08-01 09:22 | NUR ---
Pt resting in bed after working w/ ST this morning. Pt & had questions about why pt is being served pureed foods when her ordered diet is soft & bite sized. Called dietitian who stated she would review pt's previous food orders & to contact ST. Spoke w/ ST who is unfamiliar with diet orders/rules & she stated she would message PATTI Younger. Pt denying pain/discomfort. Lidocaine patch placed over rt. shoulder. Pt denies other needs. Call light in reach. Bed alarm is on. Specialty air mattress was ordered last week on 07/28 or 07/29. Partial mattress was delivered - missing air mattress & pump. Called [employer] this morning & supervisor white sugar stated she would send a message out re: delivery of the rest of the specialty air mattress & that a callback should be recieved in the next 24-48 hrs.
--- NOTE | 2023-08-01 09:31 | NUR ---
Call received from [employer]. Wang stated that they currently do not have any specialty beds in the bed shop & that [facility] was notified to order more. Will check on status of bed ordering w/ [facility].
--- NOTE | 2023-08-01 10:09 | NUR ---
Pt is off the unit w/ PT & OT.
--- NOTE | 2023-08-01 11:23 | NUR ---
Pt is back in her room after Group Therapy. She would like to stay in her wheelchair for lunch. Daughter & other family are at the bedside. Pt denies any needs at this time. Call light in her reach.
--- NOTE | 2023-08-01 12:41 | NUR ---
Pt sitting in wheelchair to eat lunch. Daughter & son-in-law stating that pt has finished her lunch & is requesting to lay down in bed. [id number] used by this RN + ACCOUNTS RECEIVABLE BOOKKEEPER to transfer pt back to bed w/out difficulty. Pt positioned supine. HOB slightly elevated to pt's comfort level. BUE elevated on pillows. SCD's placed on BLE. Pt denies other needs at this time. Call light is in her reach. Bed alarm is on.
--- NOTE | 2023-08-01 15:11 | NUR ---
Pt repositioned in bed. & friend are at the bedside. Pt denies needs at this time. Denies pain/discomfort. Call light in her reach. Bed alarm is on.
[2023-08-01 17:24] VITALS: BP 170/65; PULSE 84
[2023-08-01 17:33] VITALS: BP 144/64
[2023-08-01 19:00] VITALS: BP_SYST 144
--- NOTE | 2023-08-02 05:32 | NUR ---
A/O VSS, LEFT ARM REMAINS SWOLLEN, ELEVATED ON PILLOWS THROUGHOUT NIGHT, TURNED Q2, BED IN LOW LOCKED POSITION, CALL LIGHT WITHIN REACH, INSTRUCTED TO CALL FOR ASSISTANCE IF NEEDED
[2023-08-02 06:07] VITALS: BP 150/60; PULSE 59; TEMP 98.5
[2023-08-02 07:10] VITALS: BP_SYST 150
--- NOTE | 2023-08-02 15:07 | NUR ---
Treating Engineer met with patient and her daughter, Nenita to check in. SW updated patient and Nenita on SW role during stay. After this, SW spoke with Nenita outside of the room per her request. Nenita would like an update after tomorrow's meeting and also inquired if patient would be able to discharge home vs needing SNF placement.
[2023-08-02 18:36] VITALS: BP 151/76; PULSE 59; TEMP 97.9
[2023-08-02 19:00] VITALS: BP_SYST 151
--- NOTE | 2023-08-02 22:34 | NUR ---
REPORT RECEIVED FROM JEREMY MENON. PT RESTING IN BED, EQUAL AND UNLABORED BREATHS NOTED. SHIFT ASSESSMENT COMPLETE, SEE DOCUMENTATION. PT TOOK HS MEDS IN APPLESAUCE WELL. NO C/O PAIN OR DISCOMFORT. CALL LIGHT IN PLACE. ALL NEEDS MET AT THIS TIME.
[2023-08-03 05:52] VITALS: BP 128/60; PULSE 55; TEMP 87.7
[2023-08-03 06:36] LABS: BASO % 0.4 % (0.0-2.0); EOS # 0.2 K/mm3 (0.0-0.7); EOS % 2.9 % (0.0-4.0); GRAN # 2.8 K/mm3 (1.4-6.5); GRAN % 50.5 % (42.2-75.2); HEMOGLOBIN 10.1 g/dl (12.5-16.0); LYMPH # 1.6 K/mm3 (1.2-3.4); LYMPH % 28.4 % (20.0-51.0); MEAN CELL VOLUME 101 fl (80.0-100.0); MEAN CORPUSCULAR HEMOGLOBIN 34 pg (27-31); MEAN CORPUSCULAR HGB CONC 33 g/dl (33.0-37.0); MEAN PLATELET VOLUME 10.5 fl (7.4-10.4); MONO % 17.4 % (1.7-9.3); PLATELET COUNT 175 K/mm3 (130-400); RED BLOOD COUNT 2.99 M/mm3 (4.10-5.30); REDCELL DISTRIBUTION WIDTH-CV 14.5 % (11.5-14.5)
--- NOTE | 2023-08-03 06:41 | NUR ---
Report received on patient from Night nurse, JEREMY Chadwick.
[2023-08-03 06:49] LABS: CALCIUM 8.9 mg/dL (8.4-10.2); CREATININE, serum 0.6 mg/dL (0.57-1.11)
[2023-08-03 06:50] LABS: HEMATOCRIT 30.2 % (37.0-47.0)
[2023-08-03 07:00] VITALS: BP_SYST 128
--- NOTE | 2023-08-03 09:08 | NUR ---
Patient in a sitting position eating breakfast and family members at the bedside. Patient has right sided flaccid, and expressive aphasia. SCD in place pulses present. Patient reports of chronic pain at right shoulder. Patient took am meds crushed with applesauce and tolerated it well. Patient has no needs or concern at this time. Call almendarez within reach.
--- NOTE | 2023-08-03 16:38 | NUR ---
Crop Or Grain Farmworker met with patient's daughter, Dave at bedside to review team conference notes as patient was sleeping. Dave discussed difficulties patient's spouse is having coping with recent changes and advised she is in the process of setting spouse up with counseling through [facility] and . DANDRE also provided Mental Health Resource Guide and also added the phone number for the [facility]. DANDRE discussed with Dave that patient may not be able to return home, however we are working towards that as a goal. DANDRE scheduled family meeting for Aug 10 at 1015. Patient's local family will attend, but other siblings will need to be contacted via phone. Their numbers are as follows: Madison (ph#[phone]) Claire (ph#[phone]) Dave (ph#[phone]) Elaine (ph#[phone])
[2023-08-03 17:19] VITALS: BP 110/70; PULSE 54; TEMP 97.9
[2023-08-03 19:00] VITALS: BP_SYST 110
--- NOTE | 2023-08-03 21:00 | NUR ---
PT RESTING IN BED. FRUSTRATED BECAUSE SHE USED CALL LIGHT THREE TIMES AND NO ONE CAME. CALLED THE HOGSHEAD WEIGHER TO COME IN. HOGSHEAD WEIGHER RELATED SHE WAS JUST IN THE ROOM ASSISTING PT. CATH CARE COMPLETED. MICONAZOLE POWDER HOME HEALTH RN TO PERAREA FOR YEAST INFECTION. REPOSITIONED. CALL LIGHT IN REACH. BED ALARM SET. RT ARM IN SLING FOR SHOULDER SUPOORT. GETTING SCHEDULED FLEXARIL. PT WILL CALL IF NEEDING MORE THAN THAT.
--- NOTE | 2023-08-04 02:00 | NUR ---
CHUX SATURATED FROM FRIEDMAN. CHECKED FRIEDMAN- NOT DRAINING FROM TUBING. READJUSTED TUBING WITH APPROX 700CC DRAINED. NEW ORDER TO CHANGE OUT CATHETER ANYWAY. CHANGED WITH IMMEDIATE RETURN OF CLEAR YELLOW URINE. SECURE CATH APPLIED TO RT LEG. PT TOLERATED WELL. PT C/O RT SHOULDER PAIN. LEVEL 9/10. TOOK OFF SLING. READJUSTED ARM ON 1 PILLOW UNDER SHOULDER ANS 2 UNDER ARM. TYLENOL GIVEN CRUSHED WITH PUDDING. KPAD ORDERD AND APPLIED TO RT ASHOULDER.
[2023-08-04 05:12] VITALS: BP 130/50; PULSE 55; TEMP 98.1
[2023-08-04 07:00] VITALS: BP_SYST 130
[2023-08-04 18:04] VITALS: BP 151/52; PULSE 64; TEMP 97.4
[2023-08-04 20:00] VITALS: BP_SYST 151
--- NOTE | 2023-08-04 20:00 | NUR ---
PT RESTING IN BED. VERY SLEEPY TONIGHT. EXPRESSIVE APHASIA NOTED. RT EXTREMITIES FLACCID. TURNED Q2 HR. ON SPECIALTY BED. RT SHOULDER PAIN. SUPPORTED WITH PILLOW. KPAD PRN. RT ARM ELEVATED. RADIAL PULSE STRONG. GOOD SENSATION. SEE MAR FOR ROBAXIN GIVEN. SCHEDULED TYLENOL LATER. CALL LIGHT IN REACH. BED ALARM SET.
[2023-08-05 05:46] VITALS: BP 110/60; PULSE 54; TEMP 97.7
--- NOTE | 2023-08-05 06:53 | NUR ---
Report received from the night nurse, JEREMY Durham.
[2023-08-05 07:00] VITALS: BP_SYST 110
--- NOTE | 2023-08-05 09:25 | NUR ---
Patient awake in a sitting up position eating breakfast. Right upper arm position with a position, sling in place, noted excoriation in the labia area, and applied miconazole to the affected area. Womack draining clear yellow urine in bag. Family at the bedside. Patient denies pain or needs at this time. Call almendarez within reach.
--- NOTE | 2023-08-05 13:22 | NUR ---
Aluminum Molder met with patient and daughter, Nenita at bedside. Patient was playing dominos with Nenita and stated that she is doing well as long as her pain is under control. SW checked for any needs prior to the weekend and advised patient and Nenita that DANDRE Martin will be taking over next week.
[2023-08-05 17:38] VITALS: BP 148/71; PULSE 63; TEMP 97.4
--- NOTE | 2023-08-05 18:57 | NUR ---
RECEIVED CHANGE OF SHIFT REPORT FROM DAY SHIFT RN.
[2023-08-05 23:56] VITALS: BP 134/52
[2023-08-06 05:29] VITALS: BP 136/47; PULSE 61; TEMP 98.5
[2023-08-06 07:00] VITALS: BP_SYST 136
--- NOTE | 2023-08-06 07:08 | NUR ---
CHANGE OF SHIFT REPORT GIVEN TO DAY SHIFT RNYULISSA.
--- NOTE | 2023-08-06 07:15 | NUR ---
PATINET AWAKE AND ALERT, SITTING UP IN BED. PATIENT DENEIS ANY NEEDS OR COMPLAINTS AT THIS TIME. CALL LIGHT WITHIN REACH. FALL PRECAUTIONS IN PLACE. FAMILY AT BEDSIE.
--- NOTE | 2023-08-06 10:45 | NUR ---
PATIENT AWAKE AND ALERT, SITTING UP IN BED. PATIENT RETURNED FROM THERAPY. PATIENT DENIES ANY NEEDS OR COMPLAINTS AT THIS TIME. FALL PRECAUTIONS IN PLACE.
--- NOTE | 2023-08-06 11:37 | NUR ---
PATIENT AWAKE AND ALERT, SITTING UP IN WHEELCHAIR. 5 FAMILY MEMBERS AT BEDSIDE. PATIENT DENIES EDILSON NEEDS OR COMPLAINTS. CALL LIGHT WITHIN REACH.
--- NOTE | 2023-08-06 16:00 | NUR ---
PATIENT ASLEEP IN BED, EASILY AROUSES TO NAME. FALL PRECAUTIONS IN PLACE, FAMILY AT BEDSIDE. CALL LIGHT WITHIN REACH.
[2023-08-06 16:37] VITALS: BP 150/64; PULSE 58; TEMP 97.4
--- NOTE | 2023-08-06 16:40 | NUR ---
PATIENT AWAKE AND ALERT, SITTING UP IN BED. PATIENTS AT BEDSIDE. FALL PRECAUTIONS IN PLACE.
[2023-08-06 18:30] VITALS: BP_SYST 150
[2023-08-07 05:44] VITALS: BP 150/59; PULSE 65; TEMP 97.4
[2023-08-07 07:00] VITALS: BP_SYST 150
--- NOTE | 2023-08-07 09:40 | NUR ---
Pt doing well this morning. Pt has a few visitors first thing in which they watched online sikhism service. Pt was repositioned for breakfast and then again after the sikhism service. Family members have gone and pt is hoping to get some rest.
--- NOTE | 2023-08-07 10:28 | NUR ---
Pt resting with eyes closed, even non labored breathing
--- NOTE | 2023-08-07 15:23 | NUR ---
Pt has had visitors since about noon. Continue to reposition pt approximately every 2 hours. Pt has had 2 incontinent stools today. No needs at this time, grand daughter with her now
[2023-08-07 16:36] VITALS: BP 158/56; PULSE 67; TEMP 97.7
--- NOTE | 2023-08-07 19:10 | NUR ---
RECEIVED CHANGE OF SHIFT REPORT FROM DAY SHIFT RN. PATIENT INCONTINENT OF TRACE AMOUNT OF STOOL, PERICARE AND CATHETER CARE PROVIDED. PATIENT TOLERATED TURNING FROM SIDE TO SIDE FOR INCONTINENT CARE, REPOSITIONED FOR REST ONTO LEFT SIDE. FRIEDMAN TO DD CONTINUES. PATIENT DENIES ANY DISCOMFORT/CHEST PAIN/SOA/PRODUCTIVE COUGH AT THIS TIME.
--- NOTE | 2023-08-07 20:00 | NUR ---
CONTINUED RUE/RLE FLACCID, HAND MARKETING SUPPORT COORDINATOR NOT EQUAL WITH NONE OBSERVED TO R HAND. PATIENT TAKING MEDS CRUSHED WITH PUDDING, SWALLOWS CRUSHED MEDS MIXED WITH PUDDING WITH NO REPORTED PROBLEMS. EXIT ALARM ON, CALL LIGHT IN REACH OF L HAND. DENIES ANY NEEDS AT THIS TIME.
[2023-08-07 23:26] VITALS: BP 160/62
--- NOTE | 2023-08-08 05:00 | NUR ---
EXIT ALARM ON, CALL LIGHT IN REACH. CONTACT ISOLATION CONTINUES. SLEEPING, BREATHING NONLABORED AND EVEN, DID NOT WAKE DURING NURSING ROUNDS.
[2023-08-08 05:54] VITALS: BP 148/51; PULSE 60; TEMP 97.7
[2023-08-08 07:00] VITALS: BP_SYST 148
--- NOTE | 2023-08-08 07:22 | NUR ---
CHANGE OF SHIFT REPORT GIVEN TO DAY SHIFT RNNOEL.
--- NOTE | 2023-08-08 09:51 | NUR ---
Shift report received from the night nurseSherlyn RN.
--- NOTE | 2023-08-08 10:49 | NUR ---
Patient laying in bed awake upon entering room. Patient alert and oriented, flaccid on right side. Patient states she does have sensation on the right side. Pulses present, mercer catheter care performed , hygiene completed and reposition patient on the left side. Spouse at the bedside. Call almendarez within reach. See process intervention for documentation.
--- NOTE | 2023-08-08 15:43 | NUR ---
Broiler Supervisor met with Patient and family at bedside to review progress towards treatment goals and discuss discharge planning. Patient states that she cannot tell if she is progressing though family reports that they can see positive change. Patient states that she needs further rehab and that she hopes that she doesn't discharge too soon. SW briefed the process of interdiciplinary team meeting to review process and recommendations for re-review v anticipated discharge. Patient acknowledges and has no further concerns at this time.
--- NOTE | 2023-08-08 16:00 | NUR ---
Dr. Reid notified that patient's urine has an odor and cloudy in color. Provider order UA, specimen collected and sent to lab.
[2023-08-08 16:42] VITALS: BP 124/64; PULSE 64; TEMP 97.6
[2023-08-08 17:19] LABS: COLLECTION METHOD IN
[2023-08-08 17:29] LABS: MUCOUS Present (NOT PRESENT); SQUAMOUS EPITHELIAL 0-2 /hpf (0-10); URINE APPEARANCE Cloudy (CLEAR/HAZY); URINE BACTERIA Rare /hpf (NONE SEEN); URINE COLOR OTHER (YELLOW); URINE RBC >50 /hpf (0-2)
[2023-08-08 17:30] LABS: URINE BLOOD 3+ (NEGATIVE); URINE GLUCOSE Negative (NEGATIVE); URINE KETONE Negative (NEGATIVE); URINE NITRATE Positive (NEGATIVE); URINE PROTEIN(semi-quant) 1+ (NEGATIVE)
[2023-08-08 19:00] VITALS: BP_SYST 124
--- NOTE | 2023-08-08 21:00 | NUR ---
PT A&O LAYING IN BED & REPOSITED PER REQUEST. PT DENYING ANY PAIN. FRIEDMAN TO DD WITH YELLOW CLOUDY OUTPUT. BED ALARM ON & CALL LIGHT IN REACH. PT DENYING FURTHER NEEDS AT THIS TIME.
[2023-08-08 23:25] VITALS: BP 146/58
[2023-08-09] VITALS (7 sets, daily range): BP systolic 160–177; BP diastolic 50–91; PULSE 72–77; TEMP 97.9–975
--- NOTE | 2023-08-09 05:40 | NUR ---
PT HAD UNEVENTFUL NIGHT. PROVIDED Q2 TURNS. CURRENTLY DENYING ANY PAIN OR FURTHER NEEDS AT THIS TIME. FALL PRECAUTIONS IN PLACE & CALL LIGHT IN REACH.
--- NOTE | 2023-08-09 07:03 | NUR ---
Shift report received from security shift supervisor RN. Pt sleeping supine in bed. Resps are even & unlabored. No events reported overnight. Remains on Contact Iso for C. diff. Stool cx is still pending collection. Call light in reach. Bed alarm is on.
--- NOTE | 2023-08-09 09:42 | NUR ---
Pt is off the unit for PT & OT.
--- NOTE | 2023-08-09 12:38 | NUR ---
Pt sitting up in her wheelchair to eat lunch. is at the bedside. Pt reporting neck pain but feels the lidocaine patches are helpful. Pt wanting to go to bed after she eats. She has her call light in reach. Chair alarm is on.
--- NOTE | 2023-08-09 12:43 | NUR ---
Pt ate approx 40% of her lunch. Pt wants to sit up in her wheelchair for another hour.
--- NOTE | 2023-08-09 14:55 | NUR ---
Pt resting supine in bed. BUE elevated on pillows. Friends at the bedside. Pain denied. Other needs denied. Call light in reach. Bed alarm is on.
--- NOTE | 2023-08-09 17:33 | NUR ---
Pt sitting up in bed eating dinner independently. Family member is at the bedside. Pt reports her left leg is feeling sore this evening. Tylenol & Robaxin given per (scheduled) order. Other needs denied. Call light in reach. Bed alarm is on.
--- NOTE | 2023-08-09 19:30 | NUR ---
Assessment complete. A&Ox4. Denies pain/nausea/shortness of breath. VS stable. States she is very tired tonight from therapy today. INT to left forearm flushes without difficulty. Womack cath with clear yellow urine. Noted to have +1 edema to right upper extremity. Currently elevated on pillows. Plan of care discussed for this shift to include meds/pain control/calling for questions/concerns. Verbalizes understanding. Call light in reach. Will monitor.
[2023-08-10 06:04] VITALS: BP 150/60; PULSE 68; TEMP 97.8
--- NOTE | 2023-08-10 06:11 | NUR ---
Patient had an uneventful night. Denied pain/nausea/shortness of breath. VS remained stable. Womack cath with clear yellow urine. INT to left forearm flushes well with no s/s of infiltration. denies current needs. Call light in reach. Will monitor.
[2023-08-10 06:48] VITALS: BP_SYST 150
--- NOTE | 2023-08-10 06:49 | NUR ---
Shift report received from meteorology instructor RN. No events reported overnight. Pt sleeping supine in bed w/ even & unlabored resps. Call light in reach. Bed alarm is on.
--- NOTE | 2023-08-10 08:10 | NUR ---
Pt OOB to shower w/ OT.
[2023-08-10 10:13] LABS: CLOSTRIDIUM DIFF A/B NEG
--- NOTE | 2023-08-10 11:43 | NUR ---
Pt is off the unit w/ her daughter.
--- NOTE | 2023-08-10 11:51 | NUR ---
Research Associate Professor collaborated with Interdisciplinary Team to conduct a Family meeting with Patient and family. Family attended in-person and on phone. Team each discipline briefed progress rewpectivly. When discussing discharge plan, Family was briefed that Patient is anticipated to need further therapy piror to assigning an anticipated discharge date. Family inquires about insurance and were briefed that Patient is continuing to make progress towards goals which supports medical neccessity to remain admitted. Family reports no further concerns at this time.
--- NOTE | 2023-08-10 13:06 | NUR ---
Pt sitting up in her wheelchair visiting w/ her daughter. Pt feeling like her LLE is cramping. PT/OT in room to help reposition pt in her wheelchair & take her to the Rehab Gym. Scheduled pain medications given. Other needs denied.
--- NOTE | 2023-08-10 14:44 | NUR ---
Pt sleeping supine in bed. Resps are even & unlabored. BUE elevated on pillows. Pt incontinent of a small, soft, formed BM. Hygiene performed. Womack cath patent to drainage w/ clear, yellow return. Call light in reach. Bed alarm is on.
--- NOTE | 2023-08-10 16:21 | NUR ---
Media Marketing Coordinator met with Patient and at bedside to review team conference notes from this AM. SW reviewed progress towards treatment goals, barriers and interventions, and discharge planning with Patient. Patient is assessed to need re-review for progress and discharge next Tuesday.
[2023-08-10 17:38] VITALS: BP 150/64; PULSE 78; TEMP 97.6
--- NOTE | 2023-08-10 19:14 | NUR ---
RECEIVED CHANGE OF SHIFT REPORT FROM DAY SHIFT RN. PATIENT REQUESTED AND RECEIVED ADDITIONAL PAIN MED WITH PLANS TO CALL OUT TO STAFF AT 1930 IF THEY ARE STILL IN PAIN. SEE MAR FOR PAIN MED GIVEN. EXIT ALARM ON, CALL LIGHT IN PLACE. VISITOR AT BEDSIDE.
[2023-08-10 23:29] VITALS: BP 136/60
--- NOTE | 2023-08-10 23:47 | NUR ---
REFUSED TO BE REPOSITIONED FROM L SIDE ONTO BACK AT THIS TIME, REPORTS THAT SHE WILL CALL WHEN SHE WANTS TO BE REPOSITIONED. EXIT ALARM ON WHILE IN BED, CALL LIGHT IN REACH.
[2023-08-11 04:06] VITALS: BP 150/68; PULSE 69; TEMP 97.8
[2023-08-11 07:09] VITALS: BP_SYST 150
--- NOTE | 2023-08-11 07:10 | NUR ---
Shift report received from slot shift manager RN. at the bedside. Pt c/o increased LLE pain overnight. No other events reported. Call light in reach. Bed alarm is on.
--- NOTE | 2023-08-11 08:32 | NUR ---
Pt resting supine in bed. She feels her LLE pain is improved after taking PRN oxycodone approx 1 hr ago. Pt w/ facial flushing & nasal congestion. Denies sore throat, chest pain, SHETH, coughing. Pt denies other needs. Call light in reach. Bed alarm is on.
--- NOTE | 2023-08-11 10:24 | NUR ---
Pt transferred from bed to w/c using the sit/stand lift + INCLUSION SPECIALIST assistance. Baclofen given as ordered. Pt off the unit for Group Therapy.
--- NOTE | 2023-08-11 12:21 | NUR ---
Pt sitting up in the wheelchair to eat her lunch. Pt eating independently. is at the bedside. Pt reported continued LLE pain - PRN pain medication given > 1hr ago. Pt reports her pain is improving & denies other needs. Call light in her reach.
--- NOTE | 2023-08-11 15:05 | NUR ---
Pt resting supine in bed. BUE elevated on pillows. Pt reports feeling "comfortable" at this time & denies other needs. Call light in her reach. Bed alarm is on. Womack patent to drainage w/ clear, yellow urine.
[2023-08-11 17:00] VITALS: PULSE 71; TEMP 97.8
[2023-08-11 18:05] VITALS: BP 150/64
--- NOTE | 2023-08-11 18:31 | NUR ---
Pt resting supine in bed. Has a friend at the bedside. She denies any needs at this time. BUE elevated on pillows. Womack cath patent to drainage. Call light in reach. Bed alarm is on.
[2023-08-11 19:58] VITALS: BP 140/70
--- NOTE | 2023-08-11 20:00 | NUR ---
Patient assessed at this time, see shift assessment, A/O, denies pain at this time, INT to left forearm infusing well, SCD'on, pills crushed with pudding and took them fine without any difficulty, pericare done and catheter care done, applied desenex powder to labia, repositioned patient to left side, put some pillows on her right arm to keep it elevated to help with the swelling, denies further needs,plan of care discussed for this shift to include meds/pain control/calling for questions or concerns, call light and personal items within reach, fall precautions in place.
[2023-08-11 23:58] VITALS: BP 150/70
--- NOTE | 2023-08-12 | NUR ---
Patient is due for apresoline and tylenol, denies pain, refused to be repositioned at this time, will continue to monitor.
[2023-08-12 05:56] VITALS: BP 135/74; PULSE 70; TEMP 97.6
--- NOTE | 2023-08-12 06:00 | NUR ---
Patient repositioned to her right side, denies further needs, still with mercer to DD with good output.
[2023-08-12 06:30] VITALS: BP_SYST 135
--- NOTE | 2023-08-12 10:06 | NUR ---
PATIENT ALERT AND ORIENTED X4 VSS. PATIENT HERE FOR CVA, RIGHT SIDE WEAKNESS. RIGHT UPPER AND LOWER FLACCID. IV TO LEFT FA, INT FLUSHES WELL. FRIEDMAN TO DD WITH YELLOW OUTPUT. LABIAL EXCORIATION, DESENEX POWDER APPLIED. PATIENT REPORTS PAIN 5/10, REQUESTS PAIN MEDICATION. CALL LIGHT IN REACH, BED ALARM ON.
--- NOTE | 2023-08-12 12:14 | NUR ---
CALLED DR. HAYNES TO REPORT FINDINGS FROM UPPER AND LOWER VENOUS DOPPLER.
--- NOTE | 2023-08-12 14:26 | NUR ---
Setter Off and SW student met with Patient at bedside to collaborate with Patient in review of progress towards treatment goals. Patient reports to be making progress towards treatment goals at this time and states that today has been different with additional testing and other circumstances. Patient reports no concerns at this time.
[2023-08-12 17:15] VITALS: BP 130/90; PULSE 69; TEMP 97.7
--- NOTE | 2023-08-12 18:35 | NUR ---
HEPARIN GTT ORDERED FOR PATIENT. HEP XA NOT OBTAINED OR RESULTED AT TIME OF SHIFT CHANGE. WILL LET RELOCATION DIRECTOR NURSE BE MADE AWARE OF SITUATION.
[2023-08-12 19:58] LABS: PARTIAL THROMBOPLASTIN TIME 29.6 SECONDS (26.0-37.0)
--- NOTE | 2023-08-12 20:10 | NUR ---
Patient assessed at this time, see shift assessment, A/Ox4, INT to left forearm infusing well, SCD's on, spoken to Dr. Damon and ordered to start the heparin drip as ordered, heparin drip started at 2022, takes pills crushed with pudding, repositioned patient at this time, call light and personal items within reach, fall precautions in place, bed alarm on.
[2023-08-12 22:52] VITALS: BP 160/70; PULSE 74
[2023-08-12 23:55] VITALS: BP 150/70
--- NOTE | 2023-08-13 | NUR ---
This nurse came in to check the patient together with the FOAM RUBBER MIXER's at 2240, patient seemed to be drowsy, couldn't tell this nurse where she is at, couldn't tell her date of , and couldn't tell why she's here, vitals taken, repositioned patient at this time and informed Dr. Damon at 2252, received orders for CT scan and hold the heparin drip. Called the CT and patient was taken down to CT at 2307 and back to the floor at 2320. At this time patient is A/Ox3.At 2350 came into patient's room. Needs and questions answered. Received an order from Dr. Damon to resume the heparin at 0014.
--- NOTE | 2023-08-13 02:30 | NUR ---
Patient repositioned to her right side at this time, right arm elevated with pillows, at bedside, SCD's on.
--- NOTE | 2023-08-13 03:21 | NUR ---
HepXa 0.44 at this time, heparin drip still running at 14.5ml/hr as per protocol.
--- NOTE | 2023-08-13 04:28 | NUR ---
Repositioned patient to her left side, denies pain, will continue to monitor.
[2023-08-13 06:12] VITALS: BP 170/80; PULSE 72; TEMP 98
--- NOTE | 2023-08-13 06:30 | NUR ---
Called Dr. Rowland but unable to get a hold of him, left a message that patient's blood pressure is 170/80. Scheduled Apresoline given at this time.Repositioned patient to her right side.
[2023-08-13 07:00] VITALS: BP_SYST 170
--- NOTE | 2023-08-13 09:56 | NUR ---
PT HEPARIN DRIP PLACED ON HOLD @ 0955 AND WILL HOLD FOR 1 HOUR, THEN DECREASING RATE PER ORDER FOR HIGH HEP XA VALUE
--- NOTE | 2023-08-13 13:44 | NUR ---
Craps Manager rounds: Craps Manager visit attempted. Patient had visitor.
--- NOTE | 2023-08-13 16:40 | NUR ---
NEXT BAG OF HEPARIN SCANNED. HEPARIN INFUSING AT 12UNITS AN HOUR. PER PROTOCOL. DID DISCUSSED WITH PRIMARY NURSE THAT IT NEEDS ADJUSTED IN EMAR TO BE IN LINE WITH PROTOCOL.
[2023-08-13 17:14] VITALS: BP 146/62; PULSE 64; TEMP 97.8
--- NOTE | 2023-08-13 19:30 | NUR ---
HepXa T 1824 DRAW RESULTED TO 0.68, NO CHANGE FOR THE RATE OF HEPARIN DRIP AT THIS TIME PER PROTOCOL, STILL GOING AT 12ML/HR.
--- NOTE | 2023-08-13 19:51 | NUR ---
THIS NURSE & NIGHT NURSE DANIELA MADE ADJUSTMENT TO EMAR TO CORRECT RATE IN COMPUTER TO THE RATE HEPARIN INFUSING.
[2023-08-13 20:12] VITALS: BP 140/70
--- NOTE | 2023-08-13 20:30 | NUR ---
Assessed patient and called Dr. Damon at 2016 and informed her that patient reports she has wheezing, informed her that lung sounds clear and oxygen saturation is at 97%, received an order to put an oxymask on 2LPM. Patient is A/Ox4 at this time of assessment, IV infusing well on left forearm, heparin drip infusing at 12cc/hr, repositioned patient to her left side and made her comfortable, denies further needs, call light and personal items within reach, will continue to monitor.
[2023-08-13 23:25] VITALS: BP 130/60
--- NOTE | 2023-08-13 23:30 | NUR ---
Patient repositioned to her right side, denies further needs.
--- NOTE | 2023-08-14 01:05 | NUR ---
HepXa at 0.64, no changes made at this time, as per protocol, heparin drip still at 12cc/hr.
[2023-08-14 05:19] VITALS: BP 135/62; PULSE 69; TEMP 97.6
[2023-08-14 06:14] LABS: HEMATOCRIT 34.2 % (37.0-47.0); HEMOGLOBIN 11.1 g/dl (12.5-16.0); MEAN CELL VOLUME 102 fl (80.0-100.0); MEAN CORPUSCULAR HEMOGLOBIN 33 pg (27-31); MEAN CORPUSCULAR HGB CONC 33 g/dl (33.0-37.0); MEAN PLATELET VOLUME 9.8 fl (7.4-10.4); PLATELET COUNT 203 K/mm3 (130-400); RED BLOOD COUNT 3.36 M/mm3 (4.10-5.30); REDCELL DISTRIBUTION WIDTH-CV 13.8 % (11.5-14.5)
[2023-08-14 07:30] VITALS: BP_SYST 135
--- NOTE | 2023-08-14 08:30 | NUR ---
Patient is resting in bed, alert and orieted x 3, states pain started in her right leg, asks por PRN meds, provided. Assessment completed, meds provided, hep gtt adjusted per protocol. No further needs at this time. Call light within reach.
--- NOTE | 2023-08-14 10:00 | NUR ---
Bed bath provided by ELECTRIC DISTRIBUTION ENGINEER, lidocaine patches placed by this RN on the right shoulder. Miconazole powder applied. No further needs, call light within reach.
[2023-08-14 17:57] VITALS: BP 145/70; PULSE 67; TEMP 97.7
--- NOTE | 2023-08-14 18:30 | NUR ---
Pt requested pain medication twice. After second dose in the afternoon she requested more medication. PRN q4h, educated patient about that, pt repositioned, no phisical signs of discomfort, Pt agreed to wait for prn allowance. Report will be given to night RN.
[2023-08-14 19:31] VITALS: BP_SYST 145
--- NOTE | 2023-08-14 20:00 | NUR ---
PT A&O X4 LAYING IN BED WITH FRIEND AT BEDSIDE. C/O PAIN ON RIGHT SIDE 06/06 - GIVEN PRN OXY. FRIEDMAN TO DD WITH CLEAR YELLOW OUTPUT. HEPARIN GTT INFUSING TO LEFT FOREARM @ 10.5 MLS. BED LOWERED & CALL LIGHT IN REACH. PT DENYING FURTHER NEEDS AT THIS TIME.
--- NOTE | 2023-08-14 22:00 | NUR ---
HEP XA LAB 0.55. NO CHANGE MADE PER PROTOCOL. HEPARIN GTT CONTINUES TO INFUSE AT 10.5 MLS/HR.
[2023-08-14 23:50] VITALS: BP 148/62
--- NOTE | 2023-08-15 | NUR ---
PT REFUSING TO BE REPOSITIONED AT THIS TIME & STATES SHE "JUST WANTS TO SLEEP THROUGHOUT THE NIGHT". BED LOWERED & CALL LIGHT IN REACH.
--- NOTE | 2023-08-15 05:00 | NUR ---
HEPXA 0.47. NO CHANGE MADE PER PROTOCOL. HEPARIN GTT CONTINUES TO INFUSE AT 10.5 MLS.
[2023-08-15 06:00] VITALS: BP 150/64; PULSE 60; TEMP 97.5
--- NOTE | 2023-08-15 09:35 | NUR ---
DR.OLIPHANT BEAN. PATIENT STILL C/O A LOT OF PAIN IN LEFT LEG AFTER RECEIVING SCHEDULED DOSES OF GABAPENTIN & TYLENOL WELL PRN ROXICODONE. SEE ORDERS FOR GABAPENTIN DOSE INCREASE, MED GIVEN.
--- NOTE | 2023-08-15 10:00 | NUR ---
PATIENT REQUESTING TO GO BACK TO BED. 2 MAX ASSIST WITH SIT TO STAND LIFT. PATIENT NOW BACK IN BED TO COMFORT TILL 1300 PT.
--- NOTE | 2023-08-15 14:43 | NUR ---
PT ALEART AND ORIENTED. VITAL SIGNS STABLE. C/O PAIN IN RIGHT LOWER EXREMITY. MEDICATED PER JAN. RIGHT SIDE FLACCID, SIT TO STAND LIFT UTILIZED FOR MOBILITY. TAKES MEDS CRUSHED IN PUDDING , TOLERATES WELL. HEPARIN DRIP INFUSING PER PROTOCOL. HEAD TO TOE ASSESSMENT COMPLETE. SEE THERAPY NOTES.
--- NOTE | 2023-08-15 16:42 | NUR ---
Dump Truck Operator met with Patient to discuss progress towards treatment goals and discuss discharge planning. Patient reports to be making progress towards treament goals though reports fatigue from therapies today. Patient continues to be encouraged for further growth through therapy.
--- NOTE | 2023-08-15 17:10 | NUR ---
PATIENT GOING DOWN TO RADIOLOGY VIA BED FOR CT SCAN, SEE ORDERS.
[2023-08-15 18:17] VITALS: BP 148/58; PULSE 75; TEMP 98
--- NOTE | 2023-08-15 19:00 | NUR ---
RECEIVED CHANGE OF SHIFT REPORT FROM DAY SHIFT RN. HAS VISITORS DURING REPORT. RESTING IN BED, EXIT ALARM ON, CALL LIGHT IN REACH.
[2023-08-15 23:13] VITALS: BP 164/61
[2023-08-16 06:00] VITALS: BP 158/50; PULSE 69; TEMP 97.6
[2023-08-16 07:03] VITALS: BP_SYST 158
--- NOTE | 2023-08-16 07:06 | NUR ---
Shift report received from [facility] hospital shift lead RN. Pt sleeping supine in bed w/ even & unlabored resps. No events reported overnight. Call light in reach. Bed alarm is on.
[2023-08-16 07:50] LABS: HEMATOCRIT 37.3 % (37.0-47.0); HEMOGLOBIN 12.1 g/dl (12.5-16.0); MEAN CELL VOLUME 103 fl (80.0-100.0); MEAN CORPUSCULAR HEMOGLOBIN 33 pg (27-31); MEAN CORPUSCULAR HGB CONC 32 g/dl (33.0-37.0); MEAN PLATELET VOLUME 10.2 fl (7.4-10.4); PLATELET COUNT 218 K/mm3 (130-400); RED BLOOD COUNT 3.62 M/mm3 (4.10-5.30); REDCELL DISTRIBUTION WIDTH-CV 13.8 % (11.5-14.5)
--- NOTE | 2023-08-16 09:39 | NUR ---
Pt is off the unit for PT.
--- NOTE | 2023-08-16 09:55 | NUR ---
Pt off unit in Rehab Gym c/o RLE pain. Oxycodone given per PRN order.
--- NOTE | 2023-08-16 12:23 | NUR ---
Pt sitting up in the wheelchair eating lunch independently. is at the bedside. Robaxin given as scheduled. Pt denies any needs at this time. Call light in her reach. Chair alarm is on.
[2023-08-16 18:04] VITALS: BP 138/90; PULSE 69; TEMP 97.7
--- NOTE | 2023-08-16 19:00 | NUR ---
RECEIVED CHANGE OF SHIFT REPORT FROM DAY SHIFT RN. PATIENT IN BED, HAS VISITORS, EXIT ALARM ON, CALL LIGHT IN REACH. NO NEEDS REPORTED AT TIME OF REPORT.
[2023-08-16 23:39] VITALS: BP 160/56
--- NOTE | 2023-08-16 23:46 | NUR ---
OBSERVED SMALL AMOUNT OF RED TINGED DRAINAGE BETWEEN LABIA WITH PERICARE AT HS. OBSERVED NO RED TINGED URINE OUTPUT IN FRIEDMAN TUBING OR IN DD BAG. URINE CLEAR YELLOW PER FRIEDMAN CATH TUBING/DD BAG IS OBSERVED AT THIS TIME. PATIENT DENIES ANY NEEDS OR CONCERNS AT THIS TIME.
[2023-08-17 04:17] VITALS: BP 132/50; PULSE 76; TEMP 97.3
--- NOTE | 2023-08-17 06:53 | NUR ---
CHANGE OF SHIFT REPORT GIVEN TO DAY SHIFT RNs, HONEY.
[2023-08-17 07:00] VITALS: BP_SYST 132
--- NOTE | 2023-08-17 09:01 | NUR ---
Shift report received from marine extension agent RN. No events reported overnight. was at the bedside for breakfast. Pt ate 100% of breakfast independently. Womack remains patent to drainage w/ clear, yellow urine. Pt just completed ST. Denies other needs. Call light in reach. Bed alarm is on.
--- NOTE | 2023-08-17 10:30 | NUR ---
PT ORDER FOR HEPARIN D/C PER ORDER. SEE MAR. PT SWITCHED TO PO LYRICA. INT TO RIGHT HAND INTACT, FLUSHING WELL. WHILE IN THE ROOM OF PT INQUIRED ABOUT CHANGING HER LYRICA DOSAGE. DOSAGE MODIFIED. SEE MAR.
--- NOTE | 2023-08-17 13:01 | NUR ---
Pt's inquiring about whether pt's Lyrica dose had been decreased as discussed w/ the daughter yesterday. concerned that pt still seems very sleepy today. Hospitalist NICOL nearby & advised holding next scheduled dose of muscle relaxer if pt is too sedated. This RN to room to discuss w/ the pt. Pt is awake & sitting up in her wheelchair. Pt does not want to skip next dose of the muscle relaxer. Will administer at this time as ordered & per pt's wishes.
--- NOTE | 2023-08-17 15:24 | NUR ---
Shower completed w/ OT. Skin tear to dorsal left hand occurred as OT removing plastic covering/tape over INT in left wrist. Skin flap present. Pressure applied to stop bleeding. Steri strips, telfa, & tegaderm applied. Pt lying supine in bed. Denies any needs at this time. Call light in her reach. Bed alarm is on.
--- NOTE | 2023-08-17 16:00 | NUR ---
PT LYING IN BED COMFORTABLE. VITAL SIGNS STABLE. ALERT AND ORIENTED WITH C/O PAIN TO LOWER RIGHT EXTREMITY. MEDICATED PER MAR. AT BEDSIDE. SPEECH IS ALSO CURRENTLY IN THE ROOM DOING EVAL. PT ABLE TO SWALLOW SMALL PILLS WHOLE WITH SIPS BEFORE AND AFTER. LARGE PILLS SHE PREFERS CRUSHED. INDWELLING FRIEDMAN TO DEPENDANT DRAINAGE, CDI, YELLOW CLEAR URINE.
--- NOTE | 2023-08-17 16:07 | NUR ---
Coin Machine Service Repairer met with Patient at bedside to review team confreence notes. SW reviewed progress towards treatment goals, barriers and interventions, and discharge planning/re-eval date. Patient acknowledges and presents with no concerns.
[2023-08-17 17:18] VITALS: BP 110/72; PULSE 75; TEMP 97.6
--- NOTE | 2023-08-17 19:30 | NUR ---
RECEIVED CHANGE OF SHIFT REPORT FROM DAY SHIFT RN. PATIENT RESTING IN BED, VISITORS AT BEDSIDE, EXIT ALARM ON WITH CALL LIGHT IN REACH.
[2023-08-17 23:25] VITALS: BP 160/59
[2023-08-18 05:54] VITALS: BP 140/60; PULSE 68; TEMP 97.5
[2023-08-18 07:00] VITALS: BP_SYST 140
--- NOTE | 2023-08-18 07:00 | NUR ---
PT RESTING IN BED. PT IS ON RA. PTS RIGHT ARM ELEVATED. PT HAS CALL LIGHT AND INSTRUCTED TO CALL WITH ALL NEEDS.
--- NOTE | 2023-08-18 07:21 | NUR ---
CHANGE OF SHIFT REPORT GIVEN TO DAY SHIFT DANI. JEREMY
--- NOTE | 2023-08-18 11:56 | NUR ---
FAMILY TAKING PT DOWN TO [facility] FOR LUNCH.
[2023-08-18 17:24] VITALS: BP 130/60; PULSE 76; TEMP 98.4
[2023-08-18 18:08] LABS: BASO % 0.4 % (0.0-2.0); EOS # 0.1 K/mm3 (0.0-0.7); EOS % 1.4 % (0.0-4.0); GRAN # 4.3 K/mm3 (1.4-6.5); GRAN % 50.2 % (42.2-75.2); HEMATOCRIT 37.6 % (37.0-47.0); LYMPH % 34.5 % (20.0-51.0); MEAN CELL VOLUME 103 fl (80.0-100.0); MEAN CORPUSCULAR HEMOGLOBIN 33 pg (27-31); MEAN CORPUSCULAR HGB CONC 32 g/dl (33.0-37.0); MONO # 1.1 K/mm3 (0.1-0.6); MONO % 13.3 % (1.7-9.3); PLATELET COUNT 251 K/mm3 (130-400); RED BLOOD COUNT 3.64 M/mm3 (4.10-5.30)
[2023-08-18 18:25] LABS: C-REACTIVE PROTEIN 0.57 mg/dL (0.00-0.50); CALCIUM 9.5 mg/dL (8.4-10.2); CREATININE, serum 0.65 mg/dL (0.57-1.11); POTASSIUM 3.7 mmol/L (3.5-4.5); URIC ACID 2.4 mg/dL (2.6-6.0)
[2023-08-18 18:33] LABS: ERYTHROCYTE SEDIMENTATION RATE 48 mm/hr (0-30)
[2023-08-18 19:00] VITALS: BP_SYST 130
--- NOTE | 2023-08-18 19:15 | NUR ---
REPORT RECIEVED FROM DEBORAH LUNA. PT RESTING IN BED. PT DENIES PAIN OR DISCOMFORT AND REQUESTS THE LIGHTS BE TURNED OFF SO SHE CAN REST. CALL LIGHT IN PLACE. ALL NEEDS MET AT THIS TIME.
--- NOTE | 2023-08-18 20:42 | NUR ---
SHIFT ASSESSMENT COMPLETE, SEE DOCUMENTATION. PT DENIES PAIN. CALL LIGHT IN PLACE. ALL NEEDS MET AT THIS TIME.
[2023-08-19 05:51] VITALS: BP 140/62; PULSE 73; TEMP 98.3
[2023-08-19 07:00] VITALS: BP_SYST 140
--- NOTE | 2023-08-19 07:00 | NUR ---
PATIETN AWAKE AND ALERT, SITTING UP IN BED. PATIENTS AT BEDSIDE. PATINET DENIES ANY NEEDS OR COMPLAINTS AT THIS TIME. CALL LIGHT WITHIN REACH. FALL PREACUTIONS IN PLACE.
--- NOTE | 2023-08-19 07:05 | NUR ---
PATIENT DRESSED FOR THE DAY
--- NOTE | 2023-08-19 13:55 | NUR ---
PATIENT WITH OT
[2023-08-19 17:45] VITALS: BP 157/75; PULSE 81; TEMP 98.4
[2023-08-19 19:00] VITALS: BP_SYST 157
--- NOTE | 2023-08-19 19:43 | NUR ---
SHIFT ASSESSMENT COMPLETE. VSS. A&O X4. PATIENT PREPARING FOR BED NO REQUEST AT THIS TIME. PATIENT REPOSITIONED AND CHECKED FOR ANY INCONT.BM. ALL NIGHT MEDS GIVEN. FALL PRECAUTIONS IN PLACE. CALL LIGHT IN REACH
[2023-08-20 06:30] VITALS: BP 150/48; PULSE 73; TEMP 97.6
[2023-08-20 07:12] VITALS: BP_SYST 150
--- NOTE | 2023-08-20 07:13 | NUR ---
Shift report received from weight shifter RNSera. No events reported overnight. Pt sleeping supine in bed. Resps are even & unlabored. Call light in reach. Bed alarm is on.
--- NOTE | 2023-08-20 08:01 | NUR ---
Pt sitting up in bed watching tv. is at the bedside. Pt reports she is tolerating Lyrica "fine" & continues to report that it has been helpful w/ her pain relief. She continues on prednisone per order. Pt denies any additional needs at this time. Call light in reach. Bed alarm is on.
--- NOTE | 2023-08-20 09:25 | NUR ---
Pt repositioned to wheelchair at her request using 2 person assist + sit/stand lift. Cath care provided. Womack remains patent to drainage w/ clear yellow urine. Rt arm sling on. Pt off the unit for Group Therapy.
--- NOTE | 2023-08-20 11:01 | NUR ---
Pt back in her room after Group Therapy. She does not want to lay down in bed at this time. Pt has her call light in reach. Denies pain at this time. Call light is in her reach. Chair alarm is on.
--- NOTE | 2023-08-20 11:49 | NUR ---
Window Shade Ring Coverer rounds: Window Shade Ring Coverer visit attempted; RN with Patient.
--- NOTE | 2023-08-20 11:49 | NUR ---
Pt repositioned from wheelchair to recliner at her request. Daughter & other family members are at the bedside. Pt denies the need for pain medication at this time. Waffle air cushion placed in recliner chair. Pt has her call light in her reach. Chair alarm is on.
--- NOTE | 2023-08-20 16:55 | NUR ---
Pt transferred from recliner to supine in bed at her request using the sit/stand lift. Pt tearful & reporting RLE pain. Scheduled pain medication given. Will continue to monitor level of pain. Pt denies other needs at this time. Call light in her reach. Bed alarm is on. is at the bedside.
[2023-08-20 17:29] VITALS: PULSE 77; TEMP 98
--- NOTE | 2023-08-20 17:29 | NUR ---
Pt sitting up in bed to eat dinner indepedently. She reports her pain is "better" after laying down & stretching her legs. Pt denies any needs at this time. Call light in reach. Bed alarm is on. is at the bedside.
[2023-08-20 17:51] VITALS: BP 162/70
--- NOTE | 2023-08-20 21:05 | NUR ---
Patient assessed around this time,A/Ox4, complained that her bottom is hurting, no bed sores noted, applied barrier cream per patient request, INT to left forearm infusing well, repositioned patient at this time to her left side, still with mercer to DD with adequate output, catheter care done, denies further needs, call light and personal items within reach, will continue to monitor.
[2023-08-21 00:17] VITALS: BP 160/80
--- NOTE | 2023-08-21 00:36 | NUR ---
Repositioned patient at this time, still complaining of pain on her bottom, scheduled tylenol given.
--- NOTE | 2023-08-21 02:29 | NUR ---
Patient reports she still having pain on her bottom, medicated w/ oxycodone as ordered PRN, PS of 4/10, refused to be repositioned at this time, will continue to monitor.
--- NOTE | 2023-08-21 05:00 | NUR ---
Patient had a soft BM, pericare provided, changed pad and applied barrier cream to bottom, repositioned patient to her left side, denies further needs.
[2023-08-21 05:33] VITALS: BP 112/68; PULSE 73; TEMP 97.7
[2023-08-21 07:03] VITALS: BP 130/62
[2023-08-21 07:12] VITALS: BP_SYST 130
--- NOTE | 2023-08-21 07:12 | NUR ---
Shift report received from [facility] hospital shift lead RN. No events reported overnight. Pt requesting pain medication "early" before she starts "moving around". Scheduled medications for pain given per her request. Pt denies other needs. Call light in reach. Bed alarm is on.
--- NOTE | 2023-08-21 10:53 | NUR ---
Sit-stand lift used to transfer pt from bed to wheelchair. Womack cath patent to drainage w/ clear, yellow urine noted. Pt denies pain\discomfort at this time. Denies other needs. Call light in her reach. RUE sling on. Chair alarm on. is at the bedside.
--- NOTE | 2023-08-21 13:00 | NUR ---
Pt transferred to bed using the sit/stand lift at her request. Pt was given pain medication prior to laying down. She denies other needs at this time. Call light in her reach. Bed alarm on.
[2023-08-21 17:57] VITALS: BP 120/72; PULSE 77; TEMP 98
--- NOTE | 2023-08-21 18:59 | NUR ---
RECEIVED CHANGE OF SHIFT REPORT FROM DAY SHIFT RN.
[2023-08-21 23:30] VITALS: BP 170/78
[2023-08-22 05:25] VITALS: BP 162/80; PULSE 66; TEMP 98.1
--- NOTE | 2023-08-22 05:34 | NUR ---
RESTING IN BED, EYES CLOSED, BREATHING EVEN AND NONLABORED. EXIT ALARM ON, CALL LIGHT IN REACH.
--- NOTE | 2023-08-22 06:44 | NUR ---
CHANGE OF SHIFT REPORT GIVEN TO DAY SHIFT RNEMILY.
[2023-08-22 07:02] VITALS: BP_SYST 162
--- NOTE | 2023-08-22 08:58 | NUR ---
PT UP TO WHEEL CHAIR FOR BREAKFAST. PT HAD INCONTINENT LOOSE STOOL THIS AM. INCONTINENT CARE PROVIDED. FOUND DIME SIZED EXCORIATED AREA UNDER STAT LOCK WHILE PROVIDING PERICARE. CLEANED SITE, MOVED STAT LOCK TO LEFT LEG. LEFT EXCORIATION ASSISTANT CORPORATION COUNSEL. AM MEDS GIVEN ORDERED. PO PAIN MEDS CONTROLLING PAIN.
--- NOTE | 2023-08-22 16:55 | NUR ---
wool batting worker briefly met with patient to discuss how the weekend went. Patient expressed she had a great day yesterday but today was hard. Patient had a visitor come in while social media assistant was present. wool batting worker notified patient she would revisit with her after the team meeting on Tuesday in the afternoon. wool batting worker updated patient's board with her direct phone number. Discharge plan: Home
[2023-08-22 17:55] VITALS: BP 140/52; PULSE 78; TEMP 97.9
--- NOTE | 2023-08-22 19:00 | NUR ---
RECEIVED CHANGE OF SHIFT REPORT FROM DAY SHIFT RN.
--- NOTE | 2023-08-22 19:31 | NUR ---
Patient reports pain with rectal pressure, observed small part of hard stool at rectum, digitally removed medium amount of hard stool with small amount of dull dark red discoloring to 1 or two pieces of hard stool. Patient repositioned onto left side after stool removed. See MAR for pain med given prior to stool removed.
--- NOTE | 2023-08-22 19:36 | NUR ---
PATIENT REQUESTED STOOL SOFTENER TO BE GIVEN ROUTINELY TO AVOID FURTHER COMPLAINTS OF CONSTIPATION.
[2023-08-22 23:30] VITALS: BP 152/62
[2023-08-23 05:16] VITALS: BP 146/52; PULSE 67; TEMP 98.1
[2023-08-23 06:30] VITALS: BP_SYST 146
--- NOTE | 2023-08-23 07:14 | NUR ---
CHANGE OF SHIFT REPORT GIVEN TO DAY SHIFT RNMARILEE.
--- NOTE | 2023-08-23 09:13 | NUR ---
PT LAYING IN BED, EATING BREAKFAST, ALERT AND ORIENTEDX4. PT HAS SOME GROSS MOTOR MOVEMENT IN THE RIGHT HAND AND IS ABLE TO MOVE RIGHT FOOT. RIGHT ARM HAS SOME REDDNESS ON IT. PT RATES PAIN 5/10 IN THE RIGHT LEG AND RIGHT SHOULDER. PT UP TO WHEELCHAIR WITH THERAPY. CALL LIGHT WITHIN REACH.
[2023-08-23 18:06] VITALS: BP 154/60; PULSE 73; TEMP 97.8
--- NOTE | 2023-08-23 19:00 | NUR ---
RECEIVED CHANGE OF SHIFT REPORT FROM DAY SHIFT RN. PATIENT RESTING IN BED, DENIES ANY NEEDS AT TIME OF REPORT. EXIT ALARM ON, CALL LIGHT IN REACH.
[2023-08-24] VITALS: BP 148/50
[2023-08-24 05:38] VITALS: BP 153/58; PULSE 70; TEMP 97.8
--- NOTE | 2023-08-24 07:12 | NUR ---
CHANGE OF SHIFT REPORT GIVEN TO DAY SHIFT RNs, HONEY.
[2023-08-24 07:28] VITALS: BP_SYST 153
--- NOTE | 2023-08-24 07:29 | NUR ---
Shift report received from night RN. Pt sleeping supine in bed. No events reported overnight. Call light in reach. Bed alarm is on.
--- NOTE | 2023-08-24 08:59 | NUR ---
Pt transferred to wheelchair using sit/stand lift & 2 person assist after breakfast. Pt ate 100% of her breakfast independently. Pt c/o RLE pain - scheduled pain medications given per order. Womack remains patent to drainage w/ clear/yellow urine. Pt denies other needs. Call light in her reach. Bed alarm is on.
--- NOTE | 2023-08-24 09:20 | NUR ---
Pt is off the unit w/ PT.
--- NOTE | 2023-08-24 10:27 | NUR ---
Pt transferred to bed at her request to rest between therapy sessions. 2 person assist & sit/stand lift used for the transfer. Pt states her pain is "getting better" & denies the need for pain medication at this time. Call light is in her reach. Bed alarm is on.
--- NOTE | 2023-08-24 11:59 | NUR ---
Pt is back in her room after working w/ PT. Pt sitting up in her wheelchair to eat lunch. is at the bedside. Call light in reach. Chair alarm is on.
--- NOTE | 2023-08-24 14:59 | NUR ---
Pt resting supine in bed. HOB slightly elevated. Pt denies the need for pain medication at this time. Call light in reach. Bed alarm is on.
--- NOTE | 2023-08-24 16:42 | NUR ---
magazine worker met with IPR team to discuss patient's progress. PT is recommending patient go to SNF. magazine worker met with patient to discuss the notes from IPR team meeting. magazine worker explained PT was recommending SNF as she was making plateauing with her progress. Patient understood and requested she speak with her daughter about the agencies. magazine worker provided a copy of the team meeting notes to patient for her to review at her preferrence. magazine worker contacted Dave, patient's daughter, regarding recommendations for SNF. Dave expressed disappointment that her mother may be leaving the hospital and would like her to continue to receive IPR services. Dave wanted information regarding the criteria to meet IPR needs to remain in their services vs returning to SNF. Dave also requesting a family meeting to discuss the discharge plan. magazine worker provided Dave's phone number to Jeane Dominguez, IPR director, for assistance with explaining discharge and IPR criteria. Discharge Plan: SNF
--- NOTE | 2023-08-24 17:21 | NUR ---
Was informed by DANDRE Nenita, daughter, would like to talk to director about quaifications to stay on IPR or to go to SNF. Contacted Nenita & provided her an update of pt's functioning & team does not feel she has made significant progress. She did mention the fact pt has had a lot of leg pain. Told her we did discuss this & do not feel this would change the course of needing to go to SNF. Told her director would speak w/ the doctor in the morning about the pain. She did as that director speak w/ her sister, Elaine, who was in pt's room now. Dr. Reid present on unit. Provided him an update of families concern regarding d/c Tuesday. We discussed options for pain management & discharge. Spoke w/ pt, Elaine, daughter, & Elaine's . Explained to them the team feels she has not made significant progress since last review as she continues to need significant assistance w/ transfers & self care. Pain was mentioned again & explained Dr. Reid has been trying to balance between managing the pain & not making her tired. 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 Was told the information is a surprise as the SW last week stated she was doing well & mentioned doing another family meeting. They would like another week w/ specific goals being worked on & pt's performance. They would also like a list of SNFs to start looking at. Mentioned to her that we use Medicare.gov & DANDRE could give them a list tomorrow. Updated the team on pt staying at least another week.
[2023-08-24 17:32] VITALS: BP 142/74; PULSE 66; TEMP 97.5
[2023-08-24 19:00] VITALS: BP_SYST 148
[2023-08-24 20:34] VITALS: BP 142/62
--- NOTE | 2023-08-24 21:00 | NUR ---
ANNIE C/O OF CONSTIPATION AND RECTUM DISCOMFORT UPON SHIFT ASSESSMENT. A DIGITAL EXAM BY AZUCENA LUNA, HELPED TO REMOVE TWO SMALL IMPACTED STOOLS. PATIENT REPORTED RELIEF. MIRALAX AND STOOL SOFTNERS WERE ADMINISTERED. SIGNIFICANT EDEMA WAS NOTED ON PATIENT'S LEFT LEG R/T ILIOPSOAS HEMATOMA & BURSITIS. ANNIE'S VSS ARE CURRENTLY WNL, HOWEVER, SHE IS A&O X 3. CALL LIGHT WITHIN REACH, BED ALARM SET.
[2023-08-25 00:55] VITALS: BP 148/62
[2023-08-25 05:35] VITALS: BP 138/62; PULSE 74; TEMP 97.7
--- NOTE | 2023-08-25 05:48 | NUR ---
END OF SHIFT REPORT AND ANNIE HAS NOT COMPLAINED OF PAIN AND SLEPT MOST OF THE NIGHT. SHE STILL HAS SIGNIFICANT EDEMA IN LLE R/T TROCHANTER BURSITIS AND ILIOPSOAS HEMATOMA. VSS ARE WNL AND CALL LIGHT WITHIN REACH.
[2023-08-25 07:27] VITALS: BP_SYST 138
--- NOTE | 2023-08-25 07:27 | NUR ---
Shift report received from night RN. No events reported overnight. Pt requesting her scheduled pain medications. Medications given per EMAR. is at the bedside. Pt denies other needs. Call light in her reach. Bed alarm is on.
--- NOTE | 2023-08-25 09:27 | NUR ---
Pt off unit for PT. Pt returning back to room after bowel incontinence. Pt transferred to bed for hygiene using sit/stand lift + 2 person assistance. Pt incont of a large BM w/ harder pieces of BM noted. Pt positioned supine at her request. RUE elevated on pillow x 2. Pain/discomfort denied at this time. Call light in her reach. Bed alarm is on.
--- NOTE | 2023-08-25 11:08 | NUR ---
Pt resting supine in bed w/ HOB slightly elevated. She is resting between therapy sessions today. Womack cath patent to drainage. Pt denies pain/discomfort. Denies other needs. Call light in reach. Bed alarm is on.
--- NOTE | 2023-08-25 12:09 | NUR ---
Pt sitting up in the wheelchair eating lunch independently. is at the bedside. Pt reporting pain level at 4/10. Scheduled pain medication given. She denies other needs. Call light in reach. Chair alarm is on.
--- NOTE | 2023-08-25 14:19 | NUR ---
Pt sleeping supine in bed. HOB slightly elevated. Resps are even & unlabored. Call light in reach. Bed alarm is on.
--- NOTE | 2023-08-25 14:58 | NUR ---
farmworker grain contacted Elaine, patient's daughter, to discuss discharge planning. Elaine expressed she had already contacted all three SNF agencies in [place] to set up a tour. Elaine expressed she will be meeting with [facility] today to tour. farmworker grain expressed she can send referrals to all three agencies and Elaine reported she would like to wait until after tours. Elaine asked for new discharge date as Jeane Dominguez had expressed they would look into extending it. farmworker grain expressed they did not have a new set discharge date but she knew they were at least extending it until Tuesday. farmworker grain expressed the team would like to have a family meeting on Tuesday if she and her family were available. farmworker grain offered 9:30 am and 1 pm as times for the meeting. Elaine expressed she would contact social work assistant in the morning after speaking with her family members. farmworker grain left the Medicare.gov list of options with the patient to review with her family in case the three [place] SNF facilities ( [facility], [facility] and [facility]) were not preferred after the family tours each one. Social work will continue to follow. Discharge Plan: SNF
[2023-08-25 18:00] VITALS: BP 120/60; PULSE 73; TEMP 97.9
[2023-08-25 18:52] VITALS: BP_SYST 120
--- NOTE | 2023-08-25 20:30 | NUR ---
PT RESTING IN SPECIALTY BED. WAKES TO NAME. ORIENTED X4. MILD EXPRESSIVE APHASIA. SEE COMPLETED SHIFT ASSESSMENT. RT ARM EXTENDS ALITTLE. GRASP GETTING STRONGER. ABLE TO MOVE RT TOES. TAKES HS MEDS CRUSHED WITH APPLESAUCE.CALL LIGHT- LT SIDE OF BED REMOTE GIVEN TO PT PER HER PREFERENCE. BED ALARM SET.
[2023-08-26 06:00] VITALS: BP 143/58; PULSE 66; TEMP 97.8
[2023-08-26 07:14] VITALS: BP_SYST 143
--- NOTE | 2023-08-26 13:55 | NUR ---
break off worker contacted patient's family member, Elaine, P#: [phone] regarding the family meeting. Elaine was currently touring [facility] and would call the social work assistant back later. break off worker received a call from patient's family member, Elaine, regarding family meeting. Elaine expressed her siblings did not discuss a good time for them but she also was not certain if a family meeting was necessary if they were discharging the patient. break off worker explained the family meeting will go over information regarding the progress the patient has done, discharge placement and projected discharge date. Elaine expressed Tuesday at 9:30 am would work for her and she would relay the date and time with her family members. Elaine also expressed they were wanting placement to be [facility]. Elaine asked for a discharge date, social work assistant expressed they did not have one at this time but social work will keep her updated. Ealine stated she would be the point of contact for patient. P# [phone]. break off worker faxed referral to [facility]. break off worker updated Jeane [facility] director, for family meeting and discharge plan. Discharge Plan: SNF
[2023-08-26 17:02] VITALS: BP 112/76; PULSE 67; TEMP 97.3
[2023-08-26 18:30] VITALS: BP_SYST 112
--- NOTE | 2023-08-26 21:00 | NUR ---
PT SLEEPY TONIGHT. NO DISTRESS. PT STILL ABLE TO MOVE RT HAND AND EXTEND RT ARM SOME. ABLE TO MOVE RT TOES. RT ARM/ RLE EDEMA +2. RT ARM UP ON PILLOWS. MEDS GIVEN CRUSHED IN APPLESAUCE. HOB KEPT ELEVATED TO PREVENT ASPIRATION. REPOSITIONED 2:1 TO LEFT. SCD'S ON. CALL LIGHT IN REACH. BED ALARM SET.
[2023-08-27 05:55] VITALS: BP 150/55; PULSE 69; TEMP 97.7
--- NOTE | 2023-08-27 06:22 | NUR ---
NEW FRIEDMAN COLLECTION BAG REQUIRED CHANGING AFTER PLASTIC PIECE BROKE.
[2023-08-27 07:00] VITALS: BP_SYST 150
--- NOTE | 2023-08-27 08:30 | NUR ---
PATIENT SITTING UP IN BED VISITING WITH A VISITOR. SHIFT ASSESSMENT COMPLETED. MEDICATIONS GIVEN PER MAR. HEART SOUNDS S1 AND S2 NOTED. LUNGS CLEAR TO AUSCULTATION. BOWEL SOUNDS AUDIBLE IN ALL QUADRANTS. FRIEDMAN DRAINING DEPENDENTLY WITH CLEAR YELLOW URINE IN BAG. SMALL DRESSING TO RIGHT INNER THIGH IS CDI. SACRAL AREA IS REDDENED, BUT BLANCHABLE. PATIENT STATES PAIN IN PER LEGS AND RIGHT SHOULDER AREA. LIDOCAINE PATCHES APPLIED PER MAR. PATIENT DENIES ANY OTHER NEEDS OR CONCERNS AT THIS TIME.
--- NOTE | 2023-08-27 09:47 | NUR ---
PATIENT DOWN TO GROUP THERAPY.
--- NOTE | 2023-08-27 10:27 | NUR ---
Initial visit; Patient thanked Clinical Document Improvement Educator for stopping by and offering God's blessings. Clinical Document Improvement Educator will keep Guadalupe in her prayers.
--- NOTE | 2023-08-27 10:45 | NUR ---
PATIENT BACK FROM GROUP THERAPY. TOLERATED WELL.
--- NOTE | 2023-08-27 14:16 | NUR ---
PATIENT BACK IN BED FROM BEING UP IN FOR LUNCH. PATIENT HAS HAD A BUSY DAY WITH FRIENDS AND FAMILY VISITING.
--- NOTE | 2023-08-27 16:41 | NUR ---
NURSE ADMINISTERED MEDS PER MAR. PATIENT'S SPOUSE STATED "YOU NEED TO LEARN TO TAKE MEDS WITHOUT CRUSHING THEM, THEY WON'T BE ABLE TO DO THAT WHERE YOU GO NEXT." PATIENT GETTING UPSET. NURSE PROCEEDED TO GIVE MEDICATIONS CRUSHED AND EDUCATED SPOUSE THAT IT IS FOR THE PATIENT'S SAFTEY. NURSE EXPLAINED THAT ALL FACILITIES WILL BE ABLE TO MAKE ACCOMMODATIONS TO MEDICATIONS.
[2023-08-27 18:00] VITALS: BP 130/85; PULSE 77; TEMP 97.7
[2023-08-27 18:30] VITALS: BP_SYST 130
--- NOTE | 2023-08-27 20:30 | NUR ---
PT RESTING IN BED. PT REPOSTIONED 2:1. ASSISTED PT TO GET READY FOR BED. HAS SCANT LOOSE STOOL INCONTINENT. BRIEFS TAKIN OFF. COCCYX SL RED. SEE SKIN ASSESSMENT. LARGE HS PILLS CRUSHED IN APPLESAUCE. PT ABLE TO TAKE SMALL PILLS WHOLE WITH APPLESAUCE. NICO WELL. LEFT HOB ELEVATED. CALL LIGHT IN REACH. BED ALARM SET.
[2023-08-28 05:53] VITALS: BP 132/74; PULSE 78; TEMP 98.4
--- NOTE | 2023-08-28 06:45 | NUR ---
shift report received from [facility]
[2023-08-28 06:54] VITALS: BP_SYST 132
--- NOTE | 2023-08-28 07:30 | NUR ---
awake and sitting up in bed with breakfast, repositioned for ease of eating, daughter at bedside
--- NOTE | 2023-08-28 08:20 | NUR ---
full assessment completed, see interventions for further info
--- NOTE | 2023-08-28 08:50 | NUR ---
total bed bathprovided by CNAs, rolled to side and cocyx and buttocks without redness, stool was seen at rectum, she denies urge but placed on bedpan and encouraged to try and have bowel movement, verbalizes understanding
--- NOTE | 2023-08-28 09:10 | NUR ---
taken off bedpan and had been unable to have bowel movement, stool still seen at rectum, encouraged to push and try to have BM while lying on her left side and was able to have mod amount formed brown stool, continued to try to have more but became tired and unable, will monitor, full assessment completed, see interventions for further info,
--- NOTE | 2023-08-28 13:30 | NUR ---
resting in bed visiting with family and dozing at intervals
--- NOTE | 2023-08-28 14:38 | NUR ---
assisted out of bed and into WC and out to courtyard with family
--- NOTE | 2023-08-28 15:42 | NUR ---
returned to room per WC with family, will stay up in the WC for a while longer
[2023-08-28 17:29] VITALS: BP 140/65; PULSE 72; TEMP 97.7
[2023-08-28 19:00] VITALS: BP_SYST 140
--- NOTE | 2023-08-28 19:00 | NUR ---
bedside shift report given to JEREMY Vega
--- NOTE | 2023-08-28 20:00 | NUR ---
Pt in bed, asking to be repositioned and have bottom checked for BM. Pt incontinent of small amount liquid stool, pericares given. Repositioned to LT side. Rt side flaccid, not wearing sling to rt arm when in bed. Pt is alert and oriented x4. On specialty mattress. Rt thigh with abrasion from stat lock on mercer, clark removed d/t soiling. Mercer to bsd with yellow urine. Denies pain at this time.
[2023-08-29 00:26] VITALS: BP 130/60
--- NOTE | 2023-08-29 10:54 | NUR ---
PT SITTING UP IN BED EATING BREAKFAST. ALERT AND ORIENTEDX4. RATES PAIN 5/10 IN THE LEFT LEG
--- NOTE | 2023-08-29 14:35 | NUR ---
printed circuit board reworker contacted [facility] whom expressed they would be able to accept patient any time. printed circuit board reworker contacted Elaine, patient's family member, regarding discharge planning. printed circuit board reworker expressed she had been notified that patient's family may have expressed being ready for patient to discharge tomorrow. Elaine expressed she would like patient to remain in IPR as long as she is making progress prior to discharge to nursing facility. printed circuit board reworker expressed they could discuss the potential discharge date in the family meeting tomorrow morning whether the discharge date would be tomorrow or later that week. Elaine understood. printed circuit board reworker faxed clinical updates to [facility] [employer] [facility]. Discharge Plan: [facility]
[2023-08-29 17:37] VITALS: BP 130/65; PULSE 78; TEMP 97.8
[2023-08-29 19:00] VITALS: BP_SYST 130
--- NOTE | 2023-08-29 20:00 | NUR ---
PT IN BED, REPORTS BEING TIRED FROM PT TODAY. HS MEDS GIVEN, LARGE PILLS CRUSHED IN APPLESAUCE, SMALLER PILLS WHOLE WITH APPLESAUCE. ASSISTED PT WITH MANUAL REMOVAL OF MOD FORMED STOOL THAT SHE COULD NOT PASS ON HER OWN. REPOSITINED TO LT SIDE PER HER REQUEST. COCCYX INTACT. FRIEDMAN TO BSD WITH YELLOW URINE. SCDS ON. REMAINS FLACCID TO RT SIDE.
[2023-08-29 23:42] VITALS: BP 142/70
[2023-08-30 05:46] VITALS: BP 140/60; PULSE 68; TEMP 97.7
--- NOTE | 2023-08-30 06:00 | NUR ---
HAS RESTED WELL THIS SHIFT. NO CONCERNS OFFERED AT THIS TIME.
[2023-08-30 09:00] VITALS: BP_SYST 140
--- NOTE | 2023-08-30 09:02 | NUR ---
PER SPICE MIXER REPORT PT HAD A GOOD NIGHT. SKIN IS LOOKING GOOD BOTTOM CLEAN, DRY, INTACT. PER SPICE MIXER REPORT POWER WAS PUT IN FOLDS FOR COMFORT.
--- NOTE | 2023-08-30 09:27 | NUR ---
UPON ENTERING THE ROOM THIS MORNING THE PATIENT WAS ACCOMPANIED BY DAUGHTER, CATHY. THE PATIENT IS ALERT AND ORIENTED EATING BREAKFAST WITH MINIMAL ASSISTANCE FROM HER DAUGHTER. VITAL SIGNS STABLE, HEAD TO TOE ASSESSMENT COMPLETE. PT MEDICATED PER EMAR. CALL LIGHT WITHIN REACH BED ALARM SET. PT WILL HAVE FAMILY MEETING TODAY.
--- NOTE | 2023-08-30 16:20 | NUR ---
milk processing worker met with patient, family members and IPR team for the scheduled family meeting to discuss progress. Patient and family are in agreement with discharge to [facility] either Tuesday or . Family will discuss best day for discharge and speak with the social worker assistant about the date to notify the team. milk processing worker updated David at [facility] regarding the meeting. milk processing worker contacted Elaine, patient's daughter, whom expressed would work for discharge to SNF. Elaine asked for a time for discharge. milk processing worker contacted David with [facility] and he did not have a time but may have one on morning of discharge. milk processing worker updated Elaine and will continue to follow. milk processing worker notified Jeane Dominguez, IPR director, of discharge date. milk processing worker provided updates via email to David at [facility]. Discharge Plan: [facility]- SNF
[2023-08-30 18:17] VITALS: BP 141/72; PULSE 77; TEMP 97.6
[2023-08-30 18:59] VITALS: BP_SYST 141
--- NOTE | 2023-08-30 19:30 | NUR ---
Assessment complete. A&Ox4. Denies pain/nausea/shortness of breath. VS remain stable. Meds given crushed in apple sauce. Had a BM this shift-soft formed. Repositioned in bed with pillow support. Womack cath with clear yellow urine. Plan of care discussed for this shift to include meds/pain control/calling for questions/concerns. Verbalizes understanding. Call light in reach. Will monitor.
[2023-08-31 00:03] VITALS: BP 148/74
--- NOTE | 2023-08-31 05:47 | NUR ---
Patient had an uneventful night. Repositioned Q2H with pillow support. Incontinent of two small formed soft BMs. Redness noted to jorge area-powder applied. VS remained stable. Denies current needs. Call light in reach. Will monitor.
[2023-08-31 05:49] VITALS: BP 142/68; PULSE 78; TEMP 98
[2023-08-31 07:02] VITALS: BP_SYST 142
--- NOTE | 2023-08-31 07:04 | NUR ---
Shift report received from waste duster RN. Pt sleeping supine in bed w/ even & unlabored resps. No events reported overnight. Call light in reach. Bed alarm is on.
--- NOTE | 2023-08-31 08:33 | NUR ---
Pt is off the unit for PT.
--- NOTE | 2023-08-31 12:09 | NUR ---
Pt sitting up in the wheelchair eating lunch independently after set-up help. Pt given scheduled pain medication. She denies any needs at this time. Call light in her reach. Chair alarm is on.
--- NOTE | 2023-08-31 14:42 | NUR ---
Pt sleeping supine in bed. RUE elevated on pillows x 2. Resps are even & unlabored. Call light in reach. Bed alarm is on.
--- NOTE | 2023-08-31 14:55 | NUR ---
Has lack of transportation kept you from medical appts, meetings, work, or from getting things needed for daily living? NO How often do you feel lonely or isolated from those around you? SOMETIMES Over the past 5 days, how much of the time has pain made it hard for you to sleep? OCCASIONALLY Over the past 5 days, how often have you limited your participation in therapy due to pain? RARELY/NOT AT ALL Over the past 5 days, how often have you limited your day-to-day activities because of pain? RARELY/NOT AT ALL
[2023-08-31 16:31] VITALS: BP 130/60; PULSE 69; TEMP 97.5
--- NOTE | 2023-08-31 16:50 | NUR ---
canvas worker apprentice met with IPR team regarding patient's progress and discharge plan. Patient will transfer to [facility] tomorrow. canvas worker apprentice met with patient and patient's . canvas worker apprentice provided a copy of IPR team conference notes. Patient did not have any questions regarding this. canvas worker apprentice reviewed the important message from Medicare with patient and her . Patient verbalized she understood her rights and requested her sign the form as her sales development representative. Patient's signed the form. canvas worker apprentice made a copy of signed form, placed original in patient's file and provided a copy to the patient. Patient did not have any questions at this time. canvas worker apprentice faxed clinical updates to [facility]. Discharge Plan: [facility]- [facility]
--- NOTE | 2023-08-31 17:30 | NUR ---
Pt sitting up in bed eating dinner independently. Daughter is at the bedside. Pain/discomfort denied at this time. Other needs denied. Call light in reach. Bed alarm is on.
[2023-08-31 19:05] VITALS: BP_SYST 130
--- NOTE | 2023-08-31 20:30 | NUR ---
PT RESTING IN SPECIALTY BED. A&OX4. SEE SHIFT ASSESSMENT. RT SIDE HEMIPARESIS. ABLE TO MOVE HAND AND MOVE ARM ALITTLE. ABLE TO MOVE TOES BUT NOT RT LEG. GOOD SENSATION. RUE UP ON PILLOWS. DENIES PAIN. CALL LIGHT IN REACH. BED ALARM SET.
[2023-09-01 05:41] VITALS: BP 120/60; PULSE 72; TEMP 98.2
[2023-09-01 06:57] VITALS: BP_SYST 120
--- NOTE | 2023-09-01 06:58 | NUR ---
Shift report received from night RN. No events reported overnight. Pt sleeping supine w/ even & unlabored resps. Call light in reach. Bed alarm is on.
[2023-09-01] MEDS ORDERED: NORVASC 10MG10 MG PO (07:27)
[2023-09-01] MEDS ORDERED: ROBAXIN 75750 MG/TAB PO (07:27)
[2023-09-01] MEDS ORDERED: LIORESAL 1010 MG/TAB PO (07:27)
[2023-09-01] MEDS ORDERED: PAMELOR 10MG10 MG PO (07:28)
[2023-09-01] MEDS ORDERED: SENOKOT S 50 MG1 TAB PO (07:28)
[2023-09-01] MEDS ORDERED: MIRALAX238G PO (07:29)
[2023-09-01] MEDS ORDERED: LYRICA 75MG CAP75 MG PO (07:30)
--- NOTE | 2023-09-01 10:42 | NUR ---
Report called to [facility] nurse. Belongings were gathered by the spouse. Valuable items denied. Reviewed follow-up appts w/ the pt & spouse. They had no further questions. They are awaiting the arrival of transportation
--- NOTE | 2023-09-01 11:16 | NUR ---
railroad yard worker was contacted by David at [facility] whom expressed they would be available to transport patient at 11 am. railroad yard worker notified Elaine, patient's daughter of discharge time. railroad yard worker notified patient, patient's , nursing and community health nursing director. railroad yard worker updated Dr. Hernandez that patient's family would like her to continue 3 hours of therapy at [facility] if possible. railroad yard worker also expressed [facility] would remove the catheter if it was not in the orders for it to stay. Dr. Hernandez added this information to patient's discharge orders. railroad yard worker provided discharge orders to [facility] via email. railroad yard worker provided reporting number to nurse. No further needs at this time. Discharge Plan: [facility]- SNF
--- NOTE | 2023-09-01 11:27 | NUR ---
Transportation here to transport pt. Packet given to transportation. Pt escorted off unit via wheelchair.
--- NOTE | 2023-09-01 12:37 | NUR ---
Discharge QIM scores were reviewed by the team. Code of 3 chosen for upper body dressing was determined by team discussion to be the most usual performance for this patient during the discharge assessment period. Code of 2 chosen for rolling left to right was determined by team discussion to be the most usual performance for this patient during the discharge assessment period. Code of 2 chosen for sit to lying was determined by team discussion to be the most usual performance for this patient during the discharge assessment period. Code of 3 chosen for lying to sitting was determined by team discussion to be the most usual performance for this patient during the discharge assessment period. Code of 2 chosen for sit to stand was determined by team discussion to be the most usual performance for this patient during the discharge assessment period. Code of 2 chosen for chair to bed was determined by team discussion to be the most usual performance for this patient during the discharge assessment period.--Jeane Dominguez, PD
== END 2023-09-01 11:22 | DRG 57 ==
PROVIDERS: Physician Assistant; ADMIT Physical Medicine & Rehabilitation Sports Medicine
DX: I69.151 Hemiplegia and hemiparesis following nontraumatic intracerebral hemorrhage affecting right dominant side (principal); I82.621 Acute embolism and thrombosis of deep veins of right upper extremity; N39.0 Urinary tract infection, site not specified; I69.120 Aphasia following nontraumatic intracerebral hemorrhage; I69.191 Dysphagia following nontraumatic intracerebral hemorrhage; R13.10 Dysphagia, unspecified; R26.89 Other abnormalities of gait and mobility; R33.9 Retention of urine, unspecified; R68.2 Dry mouth, unspecified; M79.81 Nontraumatic hematoma of soft tissue; I10 Essential (primary) hypertension; I48.0 Paroxysmal atrial fibrillation; E11.9 Type 2 diabetes mellitus without complications; E27.9 Disorder of adrenal gland, unspecified; E87.6 Hypokalemia; I65.22 Occlusion and stenosis of left carotid artery; Z85.3 Personal history of malignant neoplasm of breast; Z79.01 Long term (current) use of anticoagulants; Z88.2 Allergy status to sulfonamides; Z74.09 Other reduced mobility; Z79.899 Other long term (current) drug therapy; E27.8 Other specified disorders of adrenal gland; K59.00 Constipation, unspecified; Z11.52 Encounter for screening for COVID-19; R19.7 Diarrhea, unspecified
CPT/HCPCS: A4314; J0696; J1644; J1815; J7512; Q9967

== ENCOUNTER 2023-09-08 15:03 | Emergency (ER) | payer MEDICARE ==
[~2023-09-08] VITALS: Ht 165.1 cm; Wt 90.9 kg
[~2023-09-08 15:03] MED LIST changes: +B-121000 MCG PO; +CATAPRES 0.1MG0.1 MG PO; +HYDRALAZINE HC100 MG PO; +LIDOCAINE PATCH 4%; +LIORESAL 1010 MG/TAB PO; +LYRICA 75MG CAP75 MG PO; +MIRALAX238G PO; +NEURONTIN300 MG/CAP PO; +NORVASC 10MG10 MG PO; +PAMELOR 10MG10 MG PO; +PRESERVISION A1 EAC3 PO; +ROBAXIN 75750 MG/TAB PO; +SENOKOT S 50 MG1 TAB PO; +TURMERIC CURCUMIN; +VITAMIN A; +VITAMIN K PO
[2023-09-08 15:04] VITALS: TEMP 97.5
[2023-09-08 15:36] LABS: BASO % 0.3 % (0.0-2.0); EOS % 0.4 % (0.0-4.0); GRAN # 6.3 K/mm3 (1.4-6.5); GRAN % 63.3 % (42.2-75.2); HEMOGLOBIN 14.3 g/dl (12.5-16.0); LYMPH # 2.3 K/mm3 (1.2-3.4); LYMPH % 23.1 % (20.0-51.0); MEAN CELL VOLUME 103 fl (80.0-100.0); MEAN CORPUSCULAR HEMOGLOBIN 34 pg (27-31); MEAN CORPUSCULAR HGB CONC 33 g/dl (33.0-37.0); MEAN PLATELET VOLUME 10.6 fl (7.4-10.4); MONO # 1.3 K/mm3 (0.1-0.6); MONO % 12.7 % (1.7-9.3); PLATELET COUNT 214 K/mm3 (130-400); RED BLOOD COUNT 4.17 M/mm3 (4.10-5.30); REDCELL DISTRIBUTION WIDTH-CV 12.5 % (11.5-14.5)
[2023-09-08 16:09] LABS: ALBUMIN 3.3 gm/dL (3.4-4.8); BILIRUBIN,TOTAL 0.6 mg/dL (0.2-1.2); CALCIUM 9.6 mg/dL (8.4-10.2); CREATININE, serum 0.88 mg/dL (0.57-1.11); MAGNESIUM 1.6 mg/dL (1.6-2.6); TOTAL PROTEIN 6.7 gm/dL (6.2-8.1)
[2023-09-08 16:20] LABS: POTASSIUM 2.7 mmol/L (3.5-4.5)
[2023-09-08 16:21] LABS: URINE APPEARANCE Cloudy (CLEAR/HAZY); URINE COLOR OTHER (YELLOW)
[2023-09-08 16:22] LABS: SQUAMOUS EPITHELIAL 0-2 /hpf (0-10); URINE BACTERIA Many /hpf (NONE SEEN); URINE BLOOD TRACE-INTACT (NEGATIVE); URINE GLUCOSE Negative (NEGATIVE); URINE KETONE Negative (NEGATIVE); URINE NITRATE Negative (NEGATIVE); URINE PROTEIN(semi-quant) 2+ (NEGATIVE); URINE RBC 0-2 /hpf (0-2); URINE UROBILINOGEN 0.2 E.U/dL (0.2-1.0)
[2023-09-08 16:26] LABS: COLLECTION METHOD CATHETER
[2023-09-08] MEDS ORDERED: AMOXICILLIN 8751 TAB PO (17:24)
[2023-09-08] MEDS ORDERED: KLOR-CON20 MEQ PO (17:24)
[2023-09-08 17:39] VITALS: BP 144/58; PULSE 75
[2023-09-11] MEDS ORDERED: MACROBID 1100 MG/CAP PO ×3 (17:17→17:33)
== END 2023-09-08 18:00 | disposition home or self-care (01) ==
LOC: COL.ER 15:03
PROVIDERS: Emergency Medicine
DX: T83.511A Infection and inflammatory reaction due to indwelling urethral catheter, initial encounter (principal); E87.6 Hypokalemia
CPT/HCPCS: J7120

== ENCOUNTER 2023-09-16 14:40 | Emergency (ER) | payer MEDICARE ==
[~2023-09-16] VITALS: Ht 165.1 cm; Wt 81.8 kg
[~2023-09-16 14:40] MED LIST changes: +AMOXICILLIN 8751 TAB PO; +KLOR-CON20 MEQ PO
[2023-09-16 14:53] VITALS: TEMP 97.5
[2023-09-16 15:41] LABS: BASO % 0.5 % (0.0-2.0); EOS # 0.4 K/mm3 (0.0-0.7); EOS % 4.5 % (0.0-4.0); GRAN # 3.5 K/mm3 (1.4-6.5); GRAN % 45.1 % (42.2-75.2); HEMATOCRIT 42.3 % (37.0-47.0); HEMOGLOBIN 14.5 g/dl (12.5-16.0); LYMPH # 2.7 K/mm3 (1.2-3.4); LYMPH % 34.6 % (20.0-51.0); MEAN CELL VOLUME 98 fl (80.0-100.0); MEAN CORPUSCULAR HEMOGLOBIN 34 pg (27-31); MEAN CORPUSCULAR HGB CONC 34 g/dl (33.0-37.0); MEAN PLATELET VOLUME 10.6 fl (7.4-10.4); MONO # 1.2 K/mm3 (0.1-0.6); PLATELET COUNT 202 K/mm3 (130-400); RED BLOOD COUNT 4.31 M/mm3 (4.10-5.30); REDCELL DISTRIBUTION WIDTH-CV 12.3 % (11.5-14.5)
[2023-09-16 16:00] LABS: ALANINE AMINOTRANSFERASE 22 U/L (0-55); ALBUMIN 3.7 gm/dL (3.4-4.8); ALKALINE PHOSPHATASE 131 U/L (40-150); ANION GAP 13 mmol/L (7-16); AST,SGOT 25 U/L (5-34); BILIRUBIN,TOTAL 0.5 mg/dL (0.2-1.2); BLOOD UREA NITROGEN 8 mg/dL (10-20); CALCIUM 9.9 mg/dL (8.4-10.2); CARBON DIOXIDE 25 mmol/L (23-31); CHLORIDE 101 mmol/L (98-107); CREATININE, serum 0.71 mg/dL (0.57-1.11); GLUCOSE 126 mg/dL (70-99); POTASSIUM 3.2 mmol/L (3.5-4.5); SODIUM 139 mmol/L (136-145)
[2023-09-16 16:07] LABS: TROPONIN-I < 0.010 ng/mL (0.00-0.033)
[2023-09-16 16:08] LABS: INR 1.4 (0.8-3.0); PROTHROMBIN TIME 15.1 SECONDS (9.7-12.8)
[2023-09-16] MEDS ORDERED: DOXYCYCLINE 10100 MG PO (17:23)
[2023-09-16 17:30] VITALS: BP 144/78; PULSE 93
== END 2023-09-16 18:51 | disposition home or self-care (01) ==
LOC: COL.ER 14:40
PROVIDERS: Emergency Medicine
DX: I48.20 Chronic atrial fibrillation, unspecified (principal); J18.9 Pneumonia, unspecified organism; E83.42 Hypomagnesemia; Z88.2 Allergy status to sulfonamides; Z79.01 Long term (current) use of anticoagulants; Z79.899 Other long term (current) drug therapy
CPT/HCPCS: J7030

== ENCOUNTER 2023-10-10 13:52 | Outpatient (CLI) | payer MEDICARE ==
[2008-06-05 06:17] VITALS: BP 173/71
[~2023-10-10] VITALS: Ht 165.1 cm; Wt 78.0 kg
[~2023-10-10 13:52] MED LIST changes: +DOXYCYCLINE 10100 MG PO
[2023-10-10 14:35] VITALS: BP 146/66; PULSE 70; TEMP 97.9
[2023-10-10] MEDS ORDERED: GENTLE LAXATIVE10 MG RC (14:46)
[2023-10-10] MEDS ORDERED: HCTZ 25MG TAB25 MG PO (14:47)
[2023-10-10] MEDS ORDERED: IMODIUM 2MG CAPS2 MG PO (14:48)
[2023-10-10] MEDS ORDERED: KLOR-CON20 MEQ PO (14:49)
[2023-10-10] MEDS ORDERED: MILK OF MA400 MG/52 (14:50)
[2023-10-10] MEDS ORDERED: MIRALAX PA17 GM/Dose PO (14:50)
[2023-10-10] MEDS ORDERED: PAMELOR 10MG10 MG PO (14:52)
[2023-10-10] MEDS ORDERED: MYLANTA 150 ML150 M1 PO (14:52)
[2023-10-10] MEDS ORDERED: SENNA-S 50 MG-81 TAB PO (14:53)
[2023-10-10] MEDS ORDERED: EXELON3 MG PO (14:53)
[2023-10-10] MEDS ORDERED: TYLENOL SU650 MG/SUP RC (14:54)
[2023-10-10 15:18] VITALS: BP 141/62; PULSE 70
--- NOTE | 2023-10-10 15:20 | NUR ---
Loop recorder has been inserted, and bs report given to Angely LUNA. I did call Beata and reviewed dc instructions with Jessica LUNA at [facility].
[2023-10-10] MEDS ORDERED: CLEOCIN HCL300 MG PO (15:44)
--- NOTE | 2023-10-10 16:14 | NUR ---
[facility] by [facility] for loop recorder placement. Accompanied by . EKG done. Consent for the procedure signed. Meds and HX reviewed with the pt. clinical laboratory assistant staff came in and prepped the pt for the procedure. Post procedure pt recovered with us for about 45 minutes. clinical laboratory assistant nurse called [facility] nurse and gave report. Discharge education and information given to the pt and . No questions. Pt exited the unit by wheelchair to [facility] transportation.
== END 2023-10-10 16:06 | disposition home or self-care (01) ==
LOC: COL.CAR 13:52
DX: I48.0 Paroxysmal atrial fibrillation (principal); I34.0 Nonrheumatic mitral (valve) insufficiency; I36.1 Nonrheumatic tricuspid (valve) insufficiency; I65.22 Occlusion and stenosis of left carotid artery; E87.6 Hypokalemia; I10 Essential (primary) hypertension; Z77.22 Contact with and (suspected) exposure to environmental tobacco smoke (acute) (chronic); Z86.73 Personal history of transient ischemic attack (TIA), and cerebral infarction without residual deficits; Z79.899 Other long term (current) drug therapy; Z79.01 Long term (current) use of anticoagulants
CPT/HCPCS: 27886; C1764

== ENCOUNTER → 2023-11-18 | Outpatient (CLI) | payer MEDICARE ==
[~2023-11-18] MED LIST changes: +CLEOCIN HCL300 MG PO; +GENTLE LAXATIVE10 MG RC; +IMODIUM 2MG CAPS2 MG PO; +MILK OF MA400 MG/52; +MIRALAX PA17 GM/Dose PO; +MYLANTA 150 ML150 M1 PO; +SENNA-S 50 MG-81 TAB PO; +TYLENOL SU650 MG/SUP RC
== END ==
LOC: MHCPAIN 12:48
DX: I63.311 Cerebral infarction due to thrombosis of right middle cerebral artery (principal); I61.8 Other nontraumatic intracerebral hemorrhage
CPT/HCPCS: G0463

== ENCOUNTER → 2024-02-23 | Outpatient (CLI) | payer MEDICARE | LOC: MHCPAIN 14:56 | DX: G81.90 Hemiplegia, unspecified affecting unspecified side (principal); Z86.79 Personal history of other diseases of the circulatory system; S43.001S Unspecified subluxation of right shoulder joint, sequela; S76.011A Strain of muscle, fascia and tendon of right hip, initial encounter ==

== ENCOUNTER → 2024-04-05 | Outpatient (CLI) | payer MEDICARE | LOC: MHCPAIN 10:30 | DX: M25.511 Pain in right shoulder (principal) ==

== ENCOUNTER 2024-06-04 10:18 | Emergency (ER) | payer MEDICARE ==
[~2024-06-04] VITALS: Ht 165.1 cm; Wt 79.5 kg
[2024-06-04 10:48] VITALS: BP 108/55; TEMP 97.5
[2024-06-04] MEDS ORDERED: Acetaminophen 325 MG TAB PO ONE (11:15)
[2024-06-04 13:14] VITALS: PULSE 68
== END 2024-06-04 13:14 | disposition home or self-care (01) ==
LOC: COL.ER 10:18
DX: S42.201A Unspecified fracture of upper end of right humerus, initial encounter for closed fracture (principal); I48.91 Unspecified atrial fibrillation; Z79.01 Long term (current) use of anticoagulants; W18.30XA Fall on same level, unspecified, initial encounter